=== PATIENT | male | born 1965 | race Native Hawaiian/Other Pacific Islander ===

== ENCOUNTER 2017-01-10 00:27 | Day surgery (SDC) | payer MEDICARE, OTHER, MEDICAID ==
[~2017-01-10] VITALS: Ht 172.7 cm; Wt 76.6 kg
[2017-01-10] VITALS (9 sets, daily range): BP systolic 119–163; BP diastolic 69–82; PULSE 65–74; RESP 8–16; O2SAT 92–100
[~2017-01-10 00:27] MED LIST: AMLO10TA3 PO; HYDR-3940 PO; LANT1000 PO; METO100T3 PO; MIRT15TA PO; MTC5T PO; PANT40TA3 PO; PROM25TA14 PO; SEVE800T7 PO
--- NOTE | 2017-01-10 09:15 | NUR ---
ADMISSION NOTE' MALE PT ADMITTED FOR FISTULOGRAM. DISCUSSED PLAN OF CARE WITH PT. SEE ADMIT AND FLOW SHEET
[2017-01-10] MEDS ORDERED: Heparin 10,000 Unit/1,000 mL NS Premix IV ONE (10:43)
[2017-01-10] MEDS ORDERED: Heparin 1,000 Unit/mL 10 mL Inj ONE (10:43)
[2017-01-10 10:45] LABS: BASOPHILS % (AUTO) 0.5 % (0-3); MONOCYTES % (AUTO) 7.8 % (4-12); Mean Corpuscular Hemoglobin 31.3 pg (27.0-35.0); Mean Corpuscular Volume 93.6 fL (81-100); NEUTROPHILS % (AUTO) 67.1 % (40-74); Platelet Count 172 bil/L (150-400)
[2017-01-10 10:54] LABS: INR 0.96 ratio
[2017-01-10] MEDS ORDERED: CeFAZolin 2 Gm/50 mL D5W Duplex Bag IV ONE (10:55)
[2017-01-10] MEDS ORDERED: 0.9% Sodium Chloride 1,000 ML ONE (10:55)
[2017-01-10] MEDS ORDERED: fentaNYL-PF 50 mCg/mL 2 mL Inj ONE (11:22)
--- NOTE | 2017-01-10 12:20 | NUR ---
POST PROCEDURE NOTE RETURNED FROM [facility]PER[facility]OR REAL ESTATE OFFICE. SEE FLOW SHEET
--- NOTE | 2017-01-10 15:00 | NUR ---
DISCHARGE NOTE Suture removed from fistula site. No bleeding, IV removed. Instructions given. Home with Sister.
--- NOTE | 2017-01-10 15:15 | DRSVH ---
PROCEDURE: ARTERIO VENOUS FISTULOGRAM (PNL) INDICATIONS: Dialysis dysfunction TECHNIQUE: FLUOROSCOPY TIME: 2.5 minutes. 1. Conscious sedation for 60 minutes. 2. Fistulogram performed in stations. 3. Balloon angioplasty of the central cephalic vein. 4. Balloon angioplasty of the mid cephalic vein. 5. Reflux fistulogram at the arteriovenous anastomosis. 6. Sheath removal hemostasis. The indications, alternatives, benefits, risks, and complications of the procedure were explained to the patient. Informed written consent was obtained and placed in the chart. The patient was brought to the angiography suite, and conscious sedation was administered intravenously by senior care s taff, while continuous cardiorespiratory monitoring was performed. Maximum sterile barrier technique was employed per standard protocol, including hand hygiene, cap, ma sk, sterile gown and gloves, and 2% chlorhexidine. One percent lidocaine was used to anesthetize the skin over the area of interest. Using a micropuncture sheath in the right upper extremity venous outf low was accessed in an antegrade fashion. Fistulogram was performed in stations the level of the SVC through the micropuncture sheath. The micropuncture sheath was exchanged for a short 6 Polish sheath. Balloon angioplasty was performed for 2 focal high-grade stenoses within the central portion of the cephalic vein with a 7 mm x 40 mm high-pressure balloon. Completion fistulogram was performed. Balloo n angioplasty was performed for a mild stenosis within the central portion of the cephalic outflow wi th a 7 mm x 40 mm high-pressure balloon. COMPARISON: None. FINDINGS: Initial fistulogram demonstrates a focal high-grade stenosis within the central portion of the cephalic vein. There multiple ectatic, tortuous collaterals throughout the right upper extremity . After balloon angioplasty of the central cephalic vein, there is resolution of the focal stenosis a nd decreased collateralization. After balloon angioplasty of the mild to moderate stenosis within the midportion of the cephalic outflow no stenosis remains. The arteriovenous anastomosis is widely patent. IMPRESSION: 1. Status post balloon angioplasty of a focal high-grade stenosis within the central portion of the c ephalic vein. 2. Status post balloon angioplasty of a mild to moderate grade stenosis within the midportion of the cephalic outflow. Dictated by: Nisha Blood M.D. on 01/10/2017 at 15:09 Approved by: Nisha Blood M.D. on 01/10/2017 at 15:13
== END 2017-01-10 23:59 | disposition home or self-care (01) ==
LOC: SOUO 00:27
PROVIDERS: ATTEND Radiology Vascular & Interventional Radiology
DX: I87.1 Compression of vein (principal); E11.22 Type 2 diabetes mellitus with diabetic chronic kidney disease; N18.6 End stage renal disease; Z99.2 Dependence on renal dialysis; Z91.15 Patient's noncompliance with renal dialysis; Z79.4 Long term (current) use of insulin; E11.21 Type 2 diabetes mellitus with diabetic nephropathy
CPT/HCPCS: 36415; 36902; 80048; 85025; 85610; 99152; 99153; C1725; C1769; C1894; J1200; J1644; J2250; J3010; Q9967

== ENCOUNTER 2017-01-14 07:57 | Emergency (ER) | payer MEDICARE, OTHER, MEDICAID ==
[~2017-01-14 07:57] MED LIST changes: -AMLO10TA3 PO; -LANT1000 PO; -MIRT15TA PO; -PROM25TA14 PO
[2017-01-14 08:04] VITALS: BP 178/92; PULSE 97; RESP 22; O2SAT 100
[2017-01-14] MEDS ORDERED: Ondansetron 2 mg/mL 2 mL Inj IVPUSH ONE (08:05)
[2017-01-14] MEDS ORDERED: Promethazine Inj 12.5 MG in Dextrose 5%-Pha MIX 50 ML IV ONE (08:30)
[2017-01-14] MEDS ORDERED: Sodium Chloride LOK Flush 10 mL Syringe IVFLUSH SCH (08:30)
[2017-01-14] MEDS ORDERED: Acetaminophen IV 1,000 MG in IV Premix 1 EACH IV ONE (08:35)
[2017-01-14 08:53] LABS: BASOPHILS % (AUTO) 0.1 % (0-3); EOSINOPHILS % (AUTO) 0.3 % (0-5); MONOCYTES % (AUTO) 3.7 % (4-12); Mean Corpuscular Hemoglobin 30.9 pg (27.0-35.0); Mean Corpuscular Volume 91.5 fL (81-100); NEUTROPHILS % (AUTO) 87.6 % (40-74); Platelet Count 175 bil/L (150-400)
[2017-01-14] MEDS ORDERED: HYDROmorphone 0.5 mg/0.5 mL iSecure Syringe IVPUSH ONE (08:55)
--- NOTE | 2017-01-14 08:59 | DRSVH ---
PROCEDURE: X-RAY CHEST ONE VIEW, PORTABLE ([id number]) INDICATIONS: possible aspiration pneumonia TECHNIQUE: One view of the chest was acquired. COMPARISON: 04/20/2016 FINDINGS: Surgical changes and devices: Surgical clips right upper quadrant. Lungs and pleura: No pleural effusions or pneumothorax. Lungs are clear. Mediastinum: Mediastinal contours appear normal. Heart size is normal. Bones and chest wall: No suspicious bony lesions. Overlying soft tissues appear unremarkable. IMPRESSION: No acute cardiopulmonary abnormality Dictated by: Emerson Aragon M.D. on 01/14/2017 at 8:56 Approved by: Emerson Aragon M.D. on 01/14/2017 at 8:57
[2017-01-14 09:00] VITALS: BP 121/67; PULSE 80; RESP 12; O2SAT 98
[2017-01-14 09:09] LABS: Magnesium 2.1 mg/dL (1.6-2.6)
[2017-01-14] MEDS ORDERED: 0.9% Sodium Chloride 500 ML IV ONE (09:15)
[2017-01-14 09:45] LABS: TROPONIN T 0.406 ug/L (0.0-0.011)
[2017-01-14 10:00] VITALS: BP 163/79; PULSE 82; RESP 22; O2SAT 99
--- NOTE | 2017-01-14 10:15 | ED.REPORT ---
HPI-NVD Date of Service Jan 14, 2017 ED Provider: Nhi Loyola MD 52yoM with ESRD on hemodialysis secondary to diabetes mellitus type 2 controlled with diet presents with nausea abdominal pain and diarrhea since . The patient states that he has been throwing up even though he has not been taking in any food or water, and describes his vomit as dark without bright blood. The diarrhea has been all colors sometimes dark but without bright blood. The patient often get nauseated and has been on several medication in the past and tried zofran today without improvement. The patient has also have a cough, chills and night sweats. The abdominal pain is described as moderate to severe when actively vomiting and is described as cramping. Nursing Notes Stated Complaint: VOMIT X 2 DAYS Chief Complaint: Male Abdominal Pain Nursing Notes Reviewed: Yes Allergies: Coded Allergies: Oqtztcd-Art-Jqi Reductase Inhibitor (Verified Allergy, Unknown, UNKNOWN ( ATORVASTATIN,LOVASTATIN), 01/14/17) Scheduled Metoprolol Tartrate (Metoprolol Tartrate) 100 Mg Tablet 100 MG PO BID Pantoprazole DR (Pantoprazole DR) 40 Mg Tablet.dr 40 MG PO BID Sevelamer Carbonate (Renvela) 800 Mg Tablet 1,600 MG PO TID 8AM; 12 NOON; 4PM Scheduled PRN Hydralazine (Hydralazine) 50 Mg Tablet 50 MG PO TID PRN PRN UNKNOWN Metoclopramide (Metoclopramide) 5 Mg Tablet 5 MG PO QID PRN PRN For Nausea Ondansetron ODT (Ondansetron ODT) 4 Mg Tab.rapdis 4 MG PO QID PRN PRN For Nausea Ondansetron ODT (Zofran ODT) 4 Mg Tablet 4 MG PO Q4H PRN PRN For Nausea Promethazine HCl (Phenergan) 25 Mg Supp.rect 25 MG RC BID PRN PRN For Nausea General Time Seen by MD: 08:50 Chief Complaint Nausea, Vomiting, Diarrhea, Abd pain, cramping Hx Obtained From: Patient Onset Occurred: 3 days ago Symptom Duration: Waxes and wanes Vomiting: Vomiting clear (dark without blood several episodes daily but not becoming worse) Diarrhea: Diarrhea is watery Location: : Diffuse Quality: Cramping Severity: Current: Severe Severity: Maximum: Severe Associated with: Reports: Anorexia, Headache, Shaking chills Recent Healthcare: Recent doctor visit, Previous diagnosis, Prior workup Similar Sx Previous: Yes Past Medical History Patient History: Family history: Cardiovascular disease FATHER (45) 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 Resuscitation Status: CPR: Attempt Resuscitation Past Medical History Esophageal bleeding ESRD- on dialysis Renal osteodystrophy Chronic anemia Bacteremia/sepsis Reports: Diabetes mellitus, Hypertension Past Surgical History Endoscopy Permacath placement on 09/29/2015 Reports: Cholecystectomy Family History Noncontributory Smoking History Former Smoker Social History Alcohol Use: Denies alcohol use Drug Use: Denies drug use Other Social History: Good social support, Local resident Ambulatory Status Independent Review of Systems Basic Review of Systems Eyes: Vision NL, No discharge Cardiovascular: No chest pain, No palpitations : No dysuria, No frequency Musculoskeletal: No extremity swelling, No extremity pain Hematologic: No bleeding, No bruising Allergy / Immune: No allergy Psychiatric: Normal thought content Constitutional: Reports: Chills, Weakness - generalized Ears / Nose / Throat: Reports: Nasal congestion, Denies: Hearing loss bilateral, Sore throat GI: Reports: Abdominal pain, Diarrhea, Nausea, Vomiting, Denies: Hematemesis, Hematochezia, Melena Skin: Reports Diaphoresis, Denies Bruising, Denies Rash, Denies Unexplained bruises Neurologic: Reports: Headache, Denies: Change LOC, Confusion, Lightheaded, Spinning sensation Complete sys rev & neg: except as marked. Respiratory: Reports: Prod cough, yellow, Shortness of breath, Denies: Hemoptysis Cardiovascular: Reports: Chest pain (when coughing) Physical Exam Initial Vital Signs Vital Signs (First) Date Time Temp Pulse Resp B/P Pulse Ox O2 Delivery O2 Flow Rate FiO2 01/14/17 08:04 36.7 97 22 178/92 100 Room Air Initial VS: Reviewed Head / Eyes: Atraumatic, Normocephalic, PERRL ENT: Mucous membranes moist, Conjunctiva normal, No scleral icterus Neck: Supple, Non-tender, Full range of motion Respiratory: Breath sounds normal, Clear to auscultation, No respiratory distress Cardiovascular: Regular rate & rhythm, Heart sounds normal, Intact distal pulses Back: No CVA tenderness Lymphatic: No lymphadenopathy Extremities: Vascular intact, Neuro intact, No swelling, No tenderness Skin: Warm Neurologic: Alert, Oriented, Nonfocal Psychiatric: Mood/affect normal, Behavior normal, Normal thought content General/Constitutional: Awake, Alert, Cooperative, Not toxic appearing Distress / Hydration: Positive: Distress moderate Appearance / Presentation: Positive: Appears older than age, Frail, Ill appearing/not toxic Abdomen: Soft, No guarding, No rebound, BS normoactive, No distention, No palpable mass Tenderness/Guarding/Rebound: Positive: Tender diffuse Organomegaly / Mass / Hernia: Negative: Hepatomegaly, Pulsatile mass, Splenomegaly Bowel Sounds / Distention: Positive: Bowel sounds tympanitic Interpretation & Diagnostics Lab Results Interpretation Result Diagram: 01/14/17 0835 01/14/17 0835 Test 01/14/17 08:35 White Blood Count 10.8th/mm3 (3.8-10.1) Red Blood Count 4.34mil/mm3 (4.40-5.80) Hemoglobin 13.4g/dL (13.8-17.2) Hematocrit 39.7% (41.0-50.0) Mean Corpuscular Volume 91.5fL (81-100) Mean Corpuscular Hemoglobin 30.9pg (27.0-35.0) Mean Corpuscular Hemoglobin Concent 33.8% (32.0-37.0) Red Cell Distribution Width 12.4% (12.3-15.4) Platelet Count 175bil/L (150-400) Neutrophils (%) (Auto) 87.6% (40-74) Lymphocytes (%) (Auto) 8.0% (14-46) Monocytes (%) (Auto) 3.7% (4-12) Eosinophils (%) (Auto) 0.3% (0-5) Basophils (%) (Auto) 0.1% (0-3) Sodium Level 142mEq/L (134-144) Potassium Level 4.2mEq/L (3.5-5.2) Chloride Level 96mEq/L (97-108) Carbon Dioxide Level 24mmol/L (18-29) Blood Urea Nitrogen 52mg/dL (6-24) Creatinine 11.28mg/dL (0.76-1.27) Estimat Glomerular Filtration Rate 5mL/min (>59) Glucose Level 201mg/dL (60-99) Calcium Level 8.6mg/dL (8.5-10.1) Magnesium Level 2.1mg/dL (1.6-2.6) Total Bilirubin 0.5mg/dL (0.0-1.2) Aspartate Amino Transf (AST/SGOT) 20U/L (0-50) Alanine Aminotransferase (ALT/SGPT) 5U/L (0-44) Alkaline Phosphatase 76U/L (25-150) Troponin T 0.406ug/L (0.0-0.011) Total Protein 7.8g/dL (6.4-8.4) Albumin 4.2g/dL (3.4-5.0) Lipase 190U/L (13-60) Procalcitonin 0.42ng/mL (0.00-0.08) Hold Perea Top Tube Received (Received) ECG Interpretation ECG Interpretation: Normal sinus rhythm Increasing QRS voltage in precordial and left axis deviation Interpreted by: Other (resident) X-Ray Chest Interpretation Chest Xray Interpretation: IMPRESSION: No acute cardiopulmonary abnormality Dictated by: Emerson Aragon M.D. on 01/14/2017 at 8:56 Approved by: Emerson Aragon M.D. on 01/14/2017 at 8:57 Interpretation / Wet Read by: Interpret - Radiologist Re-Eval/Medical Decision Med Decision/Clinical Course 52yoM with ESRD 2/2 DM type 2 presents with NVD. The patient has a history of chronic nausea on several at home medications and several ED visits. High normal WBC with left shift, normal CXR, normal EKG normal ESRD troponin. Likely viral gastroenteritis with concomitant chronic diabetic gastroparesis. Patient treated with IV zofran and phenergan as well as IV fluid and dilaudid for the severe abdominal pain. Feeling much improved after medication, will discharge to [facility] dialysis at 11:30 today and have return if nausea not greatly improved. ED nursing staff has spoke with the dialysis nursing staff and relayed that because the patient is a difficult IV start if the patient will be returning to the ED after dialysis, ED has requested that the current IV line be left in place by the dialysis staff. Source of Hx: Old records Discharge & Departure Impression: Primary Impression: Vomiting Additional Impressions: Gastroenteritis End stage renal disease on dialysis Diabetic ulcer of left foot Troponin level elevated Ruled Out: Hematemesis, Myocardial infarct, Pneumonia Disposition: Home Discharge Condition All VS Reviewed: Yes Condition: Stable Patient Instructions: Gastroenteritis (ED) Additional Instructions: During you visit to [facility] Emergency Department we obtained blood work for infectious markers, hemoglobin levels, and electrolytes. We obtained xray imaging of your chest and upper abdomen. All your lab values were within normal limits and your imaging showed no acute processes or abnormalities. Your vital signs were stable and safe for discharge to receive dialysis You received a dose of Dilaudid pain medication in the ED so please DO NOT drive , DO NOT drink alcohol until after your dialysis treatment. You will be sent with prescriptions for: - Zofran ODT - Phenergan Suppository Please take Tylenol for your abdominal pain and fever and chills However do not hesitate to call emergency services or your primary care physician if you experience any of the following. - High unrelenting fevers. - Uncontrolled vomiting. - Severe abdominal pain - dizziness or loss of consciousness. - Chest pain or severe shortness of breath. You should also follow up with your primary care physician in 1-2 weeks time following your emergency department visit for medication checks and general well -being. Referrals: Akhil Anne DO (PCP) Attending Statement Seen and examined. Nausea controlled at time of discharge to dialysis. IV left in place and possibility of need to return to ED if nausea returns during dialysis. Agree with assessment and plan as above. copies to: Akhil Anne Nicholas K DO Jan 14, 2017 09:41 Nhi Loyola MD Jan 15, 2017 21:47
[2017-01-14] MEDS ORDERED: ONDA4TAB12 PO (10:18)
[2017-01-14] MEDS ORDERED: PROM25SU46 RC (10:18)
[2017-01-14 11:02] VITALS: BP 168/84; RESP 11; O2SAT 96
[2017-01-14] MEDS ORDERED: ONDA4TAB9 PO (19:40)
== END 2017-01-14 11:16 | disposition home or self-care (01) ==
LOC: SED 07:57
DX: K52.9 Noninfective gastroenteritis and colitis, unspecified (principal); E11.29 Type 2 diabetes mellitus with other diabetic kidney complication; E11.621 Type 2 diabetes mellitus with foot ulcer; N18.6 End stage renal disease; R79.89 Other specified abnormal findings of blood chemistry; I12.0 Hypertensive chronic kidney disease with stage 5 chronic kidney disease or end stage renal disease; Z87.891 Personal history of nicotine dependence; Z99.2 Dependence on renal dialysis
CPT/HCPCS: 36415; 71010; 80053; 82308; 83690; 83735; 84484; 85025; 93005; 96374; 96375; 99285; J1170; J2405; J2550; J7040

== ENCOUNTER 2017-01-14 16:22 | Emergency (ER) | payer MEDICARE, OTHER, MEDICAID ==
[~2017-01-14] VITALS: Ht 172.7 cm; Wt 72.0 kg
[~2017-01-14 16:22] MED LIST changes: +ONDA4TAB12 PO; +PROM25SU46 RC
[2017-01-14 16:29] VITALS: BP 154/75; PULSE 89; RESP 15; O2SAT 100
--- NOTE | 2017-01-14 16:44 | ED.REPORT ---
HPI-General Illness Date of Service Jan 14, 2017 ED Provider: Rico Scott MD 52 year old male with a history of esophageal bleeding, ESRD on dialysis, renal osteodystrophy, and chronic anemia presents to the ER via EMS due to generalized weakness and upper abdominal pain onset four days ago. Associated symptoms include nausea, vomiting, headache, and cough. He also states that he has recently had very dark stool, without gross blood. Patient denies fever. Last bowel movement was four days ago. Nursing Notes Stated Complaint: GENERALIZED WEAKNESS Chief Complaint: General Complaint Nursing Notes Reviewed: Yes Allergies: Coded Allergies: Pjwawop-Dis-Cpa Reductase Inhibitor (Verified Allergy, Unknown, UNKNOWN ( ATORVASTATIN,LOVASTATIN), 01/14/17) Scheduled Metoprolol Tartrate (Metoprolol Tartrate) 100 Mg Tablet 100 MG PO BID Pantoprazole DR (Pantoprazole DR) 40 Mg Tablet.dr 40 MG PO BID Sevelamer Carbonate (Renvela) 800 Mg Tablet 1,600 MG PO TID 8AM; 12 NOON; 4PM Scheduled PRN Hydralazine (Hydralazine) 50 Mg Tablet 50 MG PO TID PRN PRN UNKNOWN Metoclopramide (Metoclopramide) 5 Mg Tablet 5 MG PO QID PRN PRN For Nausea Ondansetron ODT (Ondansetron ODT) 4 Mg Tab.rapdis 4 MG PO QID PRN PRN For Nausea Ondansetron ODT (Zofran ODT) 4 Mg Tablet 4 MG PO Q4H PRN PRN For Nausea Promethazine HCl (Phenergan) 25 Mg Supp.rect 25 MG RC BID PRN PRN For Nausea General Time Seen by MD: 16:24 Chief Complaint Abdominal pain, Weakness Hx Obtained From: Patient Arrived By: Ambulance Sudden in Onset?: No Onset Occurred: 4 days ago Symptom Duration: Since onset Location: : Abdomen Quality: Painful Severity: Current: Moderate Severity: Maximum: Moderate Associated with: Reports: Cough, Headache, Nausea, Vomiting, Weakness, Denies: Fever Context Related History: Reports Diabetes mellitus Similar Sx Previous: Yes Past Medical History Patient History: Family history: Cardiovascular disease FATHER (45) 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 Resuscitation Status: CPR: Attempt Resuscitation Past Medical History Esophageal bleeding ESRD- on dialysis Renal osteodystrophy Chronic anemia Bacteremia/sepsis Reports: Diabetes mellitus, Hypertension Reports: GI bleed Past Surgical History Endoscopy Permacath placement on 09/29/2015 Reports: Cholecystectomy Family History Noncontributory Smoking History Former Smoker Social History Alcohol Use: Denies alcohol use Drug Use: Denies drug use Other Social History: Good social support, Local resident Ambulatory Status Independent Review of Systems Full Review of Systems Constitutional: Reports: Weakness - generalized, Denies: Chills, Fever Respiratory: Reports: Non-productive cough Cardiovascular: Denies: Chest pain GI: Reports: Bloody/tarry stool, Constipation, Nausea, Vomiting, Denies: Abdominal pain, Diarrhea, Hematemesis Neurologic: Reports: Headache Complete sys rev & neg: except as marked. Physical Exam Vital Signs Vital Signs Date Time Temp Pulse Resp B/P Pulse Ox O2 Delivery O2 Flow Rate FiO2 01/14/17 20:20 37.1 92 18 156/76 100 Room Air 01/14/17 18:37 92 16 173/81 100 Room Air 01/14/17 16:29 36.9 89 15 154/75 100 Room Air Initial VS: Reviewed Head / Eyes: Atraumatic, Normocephalic Neck: Supple, Non-tender, Full range of motion Extremities: Vascular intact, Neuro intact, No swelling, No tenderness Skin: Warm, Dry, No cyanosis Neurologic: Alert, Oriented, Nonfocal General/Constitutional: Awake, Alert, Well developed, Well nourished Appearance / Presentation: Positive: Uncomfortable Abdomen: No guarding, No rebound, No distention Tenderness/Guarding/Rebound: Positive: Tender epigastric Rectum / Perineum: No gross blood, No hemorrhoids, No lesions Rectal for Blood: Positive: Blood - occult heme + Interpretation & Diagnostics CT Abd / Pelvis Interpretation IMPRESSION: No acute abnormality or visualized etiology of epigastric pain. Normal appendix. Circumferential rectal wall thickening, nonspecific although inflammatory or infectious etiologies are in the differential. Of note, the appearance is similar to 08/25/15. Please correct clinically and if needed with endoscopic evaluation. Circumferential bladder wall thickening, which may also be unchanged although please correlate clinically, with urinalysis and if needed with cystoscopic assessment. Status post cholecystectomy. Dictated by: Robbie Ayala M.D. on 01/14/2017 at 18:38 Approved by: Robbie Ayala M.D. on 01/14/2017 at 18:44 Study type: Abdominal CT IV contrast, Abdom CT oral contrast Interpretation / Wet Read by: Interpret - Radiologist Re-Eval/Medical Decision Med Decision/Clinical Course 52-year-old male history of end-stage renal disease on dialysis presenting with epigastric pain and vomiting. Patient had similar symptoms this morning and was sent over to dialysis. Symptoms persisted after dialysis and he came back. He was given Zofran and IV fluids and morphine and his pain and nausea vomiting resolved. His labs earlier showed no evidence of UTI and no acute cause for his abdominal pain. I did perform a CT abdomen and pelvis with no acute pathology. He does have history of GI bleed therefore I performed a rectal exam which showed no gross blood or melena but was guaiac positive. His hemoglobin is stable. I did discuss with GI who recommended he call tomorrow to get urgent follow-up with them. Patient felt much better and requested be discharged home. I did speak with nephrology Dr. Collins given he received IV contrast who thought okay to wait until Saturday for dialysis. Return precautions given. Source of Hx: Old records Time of Eval: 19:12 Re-Evaluation/Progress Note: Patient's pain is improved. Discussed lab and radiology results and plan to discharge. Patient is amenable to the plan. Return precautions given. All other questions addressed. Consultation #1: Referral / Consult Name: Davon Larios MD Consulted With: On-call physician (MIKAELA) Call Returned at: 19:28 Customs And Immigration Officer: Agrees with eval, Agrees with plan Note: Follow-up with GI to arrange urgent appointment. Consultation #2: Referral / Consult Name: Xavi Collins DO Consulted With: Nephrology Call Returned at: 19:32 Customs And Immigration Officer: Agrees with eval, Agrees with plan Note: OK to follow up on Saturday. Counseled Regarding: Diagnosis, Lab results, Need for follow-up, When/why to return to ED Discharge & Departure Primary Impression: Abdominal pain Additional Impression: GI bleeding Disposition: Home Discharge Condition All VS Reviewed: Yes Condition: Stable Patient Instructions: Acute Abdominal Pain (DC) Additional Instructions: Your workup today was reassuring. I do not believe that there is any dangerous cause for your symptoms at this time. Go home and rest. Call MIKAELA Hall, at the number provided to arrange an urgent follow-up appointment. Keep your appointment for dialysis on Saturday. Return to the ER if you develop worsening symptoms, fever, chills, chest pain, shortness of breath, or any other concerning symptoms. Referrals: Akhil Anne DO (PCP) Toya Smith MD, Donald E MD Scribe Attestation Portions of this note were transcribed by Terry Nguyễn. I, Dr. Scott, personally performed the history, physical exam and medical decision-making; I reviewed and confirmed the accuracy of the information in the transcribed note. Signed by: Tre Mariano, 01/14/2017 - 19:39 copies to: Akhil Anne DO; Toya Smith MD; Davon Larios MD, Ben M MD Jan 14, 2017 16:44 TERRY NGUYỄN Jan 14, 2017 16:49
[2017-01-14] MEDS ORDERED: Ondansetron 2 mg/mL 2 mL Inj IVPUSH PRN (17:00)
[2017-01-14 18:37] VITALS: BP 173/81; PULSE 92; RESP 16; O2SAT 100
--- NOTE | 2017-01-14 18:46 | DRSVH ---
PROCEDURE: CT ABDOMEN AND PELVIS WITH CONTRAST ([id number]) INDICATIONS: abd pain epigastric TECHNIQUE: After the administration of oral and intravenous contrast, 5 mm thick sections acquired from the diap hragms to the symphysis. 5 mm thick coronal and sagittal reformats were performed. For radiation do se reduction, the following was used: automated exposure control, adjustment of mA and/or kV accordi ng to patient size. COMPARISON: [facility], CT, CT ABD PELVIS W CON, 08/25/2015, 19:56. FINDINGS: Image quality: Motion degraded examination. ABDOMEN: Lung bases: Linear scarring/atelectasis in the right lung base. Solid organs: Small cyst adjacent to the posterior segment of the liver image 28 is unchanged since 2 015, otherwise liver and spleen are normal in size and enhancement. Gallbladder surgically absent. Biliary system is non-dilated. Pancreas enhances normally. No adrenal nodules. Kidneys are grossly unremarkable, without hydronephrosis. Presumed subcentimeter left renal cyst although too small to characterize definitively. Peritoneum and bowel: Stomach, small bowel, and colon loops are normal in caliber and wall thickness . No free fluid or air. Normal appendix. Circumferential rectal wall thickening however limited leonardo luation given partially decompressed status. This appears grossly unchanged since prior study. Scatte red incidental colonic diverticula. Nodes and vessels: No retroperitoneal or mesenteric adenopathy. Aorta and inferior vena cava are no rmal in caliber. Prominent atheromatous calcifications. Miscellaneous: No ventral hernias. PELVIS: Genitourinary: Circumferential bladder wall thickening Miscellaneous: No inguinal hernias or adenopathy. Bones: No suspicious bony lesions. No vertebral body compression fractures. IMPRESSION: No acute abnormality or visualized etiology of epigastric pain. Normal appendix. Circumferential rectal wall thickening, nonspecific although inflammatory or infectious etiologies ar e in the differential. Of note, the appearance is similar to 08/25/15. Please correct clinically and i f needed with endoscopic evaluation. Circumferential bladder wall thickening, which may also be unchanged although please correlate clinic ally, with urinalysis and if needed with cystoscopic assessment. Status post cholecystectomy. Dictated by: Robbie Ayaal M.D. on 01/14/2017 at 18:38 Approved by: Robbie Ayala M.D. on 01/14/2017 at 18:44
[2017-01-14] MEDS ORDERED: ONDA4TAB9 PO (19:40)
[2017-01-14 20:20] VITALS: BP 156/76; PULSE 92; RESP 18; O2SAT 100
== END 2017-01-14 20:21 | disposition home or self-care (01) ==
LOC: SED 16:22 → EDUNIT# 16:22 → EDBD 16:22 → SED 20:21
DX: R10.13 Epigastric pain (principal); K92.2 Gastrointestinal hemorrhage, unspecified; R05 Cough; R51 Headache; I12.0 Hypertensive chronic kidney disease with stage 5 chronic kidney disease or end stage renal disease; E11.22 Type 2 diabetes mellitus with diabetic chronic kidney disease; N18.6 End stage renal disease; Z99.2 Dependence on renal dialysis; Z90.49 Acquired absence of other specified parts of digestive tract; Z87.891 Personal history of nicotine dependence; Z88.8 Allergy status to other drugs, medicaments and biological substances
CPT/HCPCS: 74177; 96374; 96375; 96376; 99284; J2270; J2405; Q9967

== ENCOUNTER 2017-05-06 10:33 | Inpatient (IN) | payer MEDICARE, OTHER, MEDICAID ==
[~2017-05-06] VITALS: Ht 177.8 cm; Wt 71.1 kg
[~2017-05-06 10:33] MED LIST changes: +ONDA4TAB9 PO
[2017-05-06 10:50] VITALS: BP 181/94; PULSE 93; RESP 16; O2SAT 94
[2017-05-06] MEDS ORDERED: Ondansetron 2 mg/mL 2 mL Inj ONE (10:51)
[2017-05-06 11:09] LABS: BASOPHILS % (AUTO) 0.1 % (0-3); EOSINOPHILS % (AUTO) 0 % (0-5); MONOCYTES % (AUTO) 2.6 % (4-12); Mean Corpuscular Hemoglobin 31.7 pg (27.0-35.0); Mean Corpuscular Volume 92.4 fL (81-100); NEUTROPHILS % (AUTO) 94.2 % (40-74); Platelet Count 233 bil/L (150-400)
[2017-05-06 11:26] LABS: Magnesium 2.4 mg/dL (1.6-2.6)
--- NOTE | 2017-05-06 11:27 | ED.REPORT ---
HPI-NVD Date of Service May 06, 2017 ED Provider: Beverley Umaña History of Present Illness: vomiting for 2 days, unable to keep anything down. denies coughing. reports mid sternal pain for 2 days. positive heartburn. due for dialysis today. primary care is residency clinic. nephrology is [facility] Nursing Notes Stated Complaint: VOMITING Chief Complaint: Male Abdominal Pain Nursing Notes Reviewed: Yes Allergies: Coded Allergies: Nqsxisv-Onv-Sij Reductase Inhibitor (Verified Allergy, Unknown, UNKNOWN ( ATORVASTATIN,LOVASTATIN), 05/06/17) Scheduled Metoprolol Tartrate (Metoprolol Tartrate) 100 Mg Tablet 100 MG PO BID Pantoprazole DR (Pantoprazole DR) 40 Mg Tablet.dr 40 MG PO BID Sevelamer Carbonate (Renvela) 800 Mg Tablet 1,600 MG PO TID 8AM; 12 NOON; 4PM Scheduled PRN Hydralazine (Hydralazine) 50 Mg Tablet 50 MG PO TID PRN PRN UNKNOWN Metoclopramide (Metoclopramide) 5 Mg Tablet 5 MG PO QID PRN PRN For Nausea Ondansetron ODT (Ondansetron ODT) 4 Mg Tab.rapdis 4 MG PO QID PRN PRN For Nausea Ondansetron ODT (Zofran ODT) 4 Mg Tablet 4 MG PO Q4H PRN PRN For Nausea Promethazine HCl (Phenergan) 25 Mg Supp.rect 25 MG RC BID PRN PRN For Nausea General Time Seen by MD: 11:26 Chief Complaint Vomiting, Diarrhea Hx Obtained From: Patient Onset Occurred: 2 days ago Past Medical History Patient History: Family history: Cardiovascular disease FATHER (45) Past Medical History Notes: 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 Smith Admitted to hospital from 09/26/2015 through 09/30/2015 for sepsis and upper GI bleed. Resuscitation Status: CPR: Attempt Resuscitation Past Medical History Esophageal bleeding ESRD- on dialysis Renal osteodystrophy Chronic anemia Bacteremia/sepsis Reports: Diabetes mellitus, Hypertension Reports: GI bleed Past Surgical History Endoscopy Permacath placement on 09/29/2015 Reports: Cholecystectomy Family History Noncontributory Smoking History Former Smoker Social History Alcohol Use: Denies alcohol use Drug Use: Denies drug use Other Social History: Good social support, Local resident Ambulatory Status Independent Review of Systems Basic Review of Systems Eyes: Vision NL, No discharge Hematologic: No bleeding, No bruising Psychiatric: Normal thought content Physical Exam Initial Vital Signs Vital Signs (First) Date Time Temp Pulse Resp B/P Pulse Ox O2 Delivery O2 Flow Rate FiO2 05/06/17 10:50 36.1 93 16 181/94 94 Room Air Initial VS: Reviewed, Vital signs abnormal Head / Eyes: Atraumatic, Normocephalic, PERRL ENT: Mucous membranes moist, Conjunctiva normal, No scleral icterus Neck: Supple, Non-tender, Full range of motion Respiratory: Breath sounds normal, Clear to auscultation, No respiratory distress Cardiovascular: Regular rate & rhythm, Heart sounds normal, Intact distal pulses Back: No CVA tenderness Lymphatic: No lymphadenopathy Extremities: Vascular intact, Neuro intact, No swelling, No tenderness Skin: Warm, Dry, No cyanosis Neurologic: Alert, Oriented, Nonfocal Psychiatric: Mood/affect normal, Behavior normal, Normal thought content General/Constitutional: Awake, Alert Distress / Hydration: Positive: Distress mild Abdomen: Atraumatic, Soft, Non-tender ENT: Atraumatic, Airway patent, Mucous membranes moist Respiratory / Chest: Atraumatic, Breath sounds NL, Breath sounds = bilat Cardiovascular: Heart rate NL, Regular rhythm, Heart sounds NL Interpretation & Diagnostics Lab Results Interpretation Result Diagram: 05/06/17 1056 05/06/17 1056 Test 05/06/17 10:50 05/06/17 10:56 Procalcitonin 0.81ng/mL (0.00-0.08) White Blood Count 19.6th/mm3 (3.8-10.1) Red Blood Count 4.19mil/mm3 (4.40-5.80) Hemoglobin 13.3g/dL (13.8-17.2) Hematocrit 38.7% (41.0-50.0) Mean Corpuscular Volume 92.4fL (81-100) Mean Corpuscular Hemoglobin 31.7pg (27.0-35.0) Mean Corpuscular Hemoglobin Concent 34.4% (32.0-37.0) Red Cell Distribution Width 13.1% (12.3-15.4) Platelet Count 233bil/L (150-400) Neutrophils (%) (Auto) 94.2% (40-74) Lymphocytes (%) (Auto) 2.9% (14-46) Monocytes (%) (Auto) 2.6% (4-12) Eosinophils (%) (Auto) 0% (0-5) Basophils (%) (Auto) 0.1% (0-3) Sodium Level 144mEq/L (134-144) Potassium Level 4.4mEq/L (3.5-5.2) Chloride Level 92mEq/L (97-108) Carbon Dioxide Level 25mmol/L (18-29) Blood Urea Nitrogen 74mg/dL (6-24) Creatinine 11.55mg/dL (0.76-1.27) Estimat Glomerular Filtration Rate 5mL/min (>59) Glucose Level 373mg/dL (60-99) Lactic Acid Level 3.8mmol/L (0.4-2.0) Calcium Level 9.6mg/dL (8.5-10.1) Magnesium Level 2.4mg/dL (1.6-2.6) Total Bilirubin 0.6mg/dL (0.0-1.2) Aspartate Amino Transf (AST/SGOT) 25U/L (0-50) Alanine Aminotransferase (ALT/SGPT) 24U/L (0-44) Alkaline Phosphatase 89U/L (25-150) Troponin T 0.413ug/L (0.0-0.011) Total Protein 8.9g/dL (6.4-8.4) Albumin 4.2g/dL (3.4-5.0) Lipase 235U/L (13-60) Re-Eval/Medical Decision Med Decision/Clinical Course 52 year old male with ESRD presents to the ER for 2 to 3 days of NVD. Patient with WBC of 19, no fever. Sepsis work up initiated. Discussed with Dr. Collins. His suggestion is not to start antibiotics. Discussed with hospitalist, likely will start antibiotics at least till cultures come back negative. Patient goes to dialysis first then will be admited. Discharge & Departure Impression: Primary Impression: Nausea vomiting and diarrhea Additional Impression: ESRD (end stage renal disease) Disposition: ADMITTED TO HOSPITAL Referrals: Akhil Anne DO (PCP) EDSupervising Provider for APC: Nhi Loyola MD copies to: Akhil Anne Sue ARNP May 06, 2017 11:27
[2017-05-06] MEDS ORDERED: Pantoprazole 4 mg/mL 10 mL Inj IVPUSH ONE (11:35)
[2017-05-06] MEDS ORDERED: Piperacillin-Tazo 3.375 Gm Inj 3.375 GM in Dextrose 5% Minibag Plus 50 ML IV ONE (11:50)
[2017-05-06] MEDS: 0.9% Sodium Chloride 1,000 ML IV SCH ×2 (11:50→20:38)
[2017-05-06] MEDS ORDERED: Promethazine Inj 12.5 MG in Dextrose 5%-Pha MIX 50 ML IV ONE (11:50)
[2017-05-06] MEDS ORDERED: Insulin Human REGular 300 Unit/3 mL Inj SUBQ SCH (11:55)
--- NOTE | 2017-05-06 12:55 | DRSVH ---
PROCEDURE: X-RAY CHEST, TWO VIEWS ([id number]) INDICATIONS: increased wbc. vomiting TECHNIQUE: 2 views of the chest were acquired. COMPARISON: [facility], CR, XR CHEST 1VW (PORTABLE), 01/14/2017, 8:31. [facility], CR, XR CHEST 1VW (PORTABLE), 04/20/2016, 17:39. FINDINGS: Surgical changes and devices: None. Lungs and pleura: No pleural effusions or pneumothorax. Lungs are mildly abnormal with reduced insp iration and slight stranding of the retrocardiac left lower lobe. Mediastinum: Mediastinal contours are normal. Heart size is normal. Bones and chest wall: No suspicious bony abnormalities. Soft tissues appear unremarkable. IMPRESSION: Previous inspiratory volume, mild stranding behind the left heart. This is considered mo re likely atelectasis than pneumonia by appearance. Dictated by: Trent Angela M.D. on 05/06/2017 at 12:52 Approved by: Trent Angela M.D. on 05/06/2017 at 12:53
[2017-05-06 13:07] VITALS: BP 183/94; PULSE 92; RESP 18; O2SAT 97
[2017-05-06] MEDS ORDERED: Ondansetron 2 mg/mL 2 mL Inj IVPUSH PRN ×2 (14:00→15:45)
[2017-05-06] MEDS ORDERED: Alum-Mag Hydrox-Simeth 30 mL Suspension PO PRN (14:00)
--- NOTE | 2017-05-06 14:18 | PCM.HPMED ---
Subjective Date of Service May 06, 2017 Primary Provider: Admitting Physician: Preeti Soares DO Primary Care Physician: Akhil Anne DO Attending Physician: Preeti Soares DO Admit Status: From the Emergency Department Chief Complaint: Nausea, vomiting, and diarrhea. History of Present Illness: This is a 52-year-old male with past medical history significant for diabetes mellitus type II and currently uncontrolled, coronary artery disease, chronic elevation of troponins, ESRD on HD, chronic pain with intermittent opiate use, and peripheral vascular disease who presents today with nausea, vomiting, and diarrhea. The symptoms began 05/03/2017 after dialysis. He does have a sick contact, his sister, who has very similar symptoms. The diarrhea is liquid but he cannot describe the color due to his visual impairment. He also had sharp epigastric pain that is nonradiating with severity of 5/10 and described as constant. The pain is exacerbated by swallowing and hiccups and at times felt like a fullness in his throat. Patient states that nothing seems to relieve the pain. He did have similar symptoms approximately 1 year ago but does not recall how he treated this. Other associated symptoms: Night sweats, shortness of breath, itching of fistula. He denies any fevers, chills, chest pain cough, worsening lower extremity swelling. In the emergency department initial vitals were temperature 36.1 Celsius, pulse 93, respiratory rate 16, blood pressure 181/94, initial laboratory values WBC 19.6, hemoglobin 13.3, hematocrit 30.7, platelets 233. BUN 74, creatinine 11.55 , glucose 373, lactic acid 3.8, troponin 0.413. Chest x-ray showed likely atelectasis versus pneumonia. EKG showed normal sinus rhythm with rate of 90. Blood cultures are pending. In the emergency department patient received a 1 L bolus of normal saline, pantoprazole, lorazepam, and Humulin 10 units. Review of Systems: A comprehensive review of systems was conducted with the patient and found to be negative except as above in the History of Present Illness. Allergies Coded Allergies: Fxldcdw-Buk-Wit Reductase Inhibitor (Verified Allergy, Unknown, UNKNOWN ( ATORVASTATIN,LOVASTATIN), 05/06/17) atorvastatin (Verified Allergy, Unknown, 05/06/17) lovastatin (Verified Allergy, Unknown, 05/06/17) Home Medications hydralazine 50 mg tablet take 1 tablet by oral route 3 times every day with food metoprolol tartrate 25 mg tablet take 1 Tablet by oral route 2 times every day oxycodone 5 mg tablet take 1 tablet by ORAL route every 6 hours as needed for severe pain pantoprazole 40 mg tablet,delayed release take 1 tablet by oral route 2 times every day Renvela 800 mg tablet take 2 tablet by oral route 3 times every day at 8AM & 12noon & 4PM PMH Coronary artery disease ESRD on HD Diabetes mellitus type II Peripheral vascular disease Hypertension GERD Chronically elevated troponins Chronic pain on opiates. Chronic normocytic anemia Cardiac catheterization on 01/10/2017: Status post balloon angioplasty of focal high-grade stenosis in the central portion of the cephalic vein. Status post balloon angioplasty of a mild to moderate grade stenosis in the midportion of the cephalic outflow. Echocardiogram on 08/26/2015: EF of 60-65%. Left ventricular wall thickness mildly increased. Trace mitral, aortic, and tricuspid regurgitation. Right ventricular systolic pressure 36 mmHg. Surgical History Cholecystectomy. Permacath placement. Family History Family history of coronary artery disease, renal disease, diabetes mellitus type II Social History Hx Alcohol Use: No (quit in Dec 2014) Hx Substance Use: Yes (marijuana smokes it small amts weekly 11/25 lasts him 2- 3 weeks ) Hx Tobacco Use: No Smoking Status: Former Smoker Additional Information Patient smokes marijuana. Exam Vital Signs Vital Sign - Last Date Time Temp Pulse Resp B/P Pulse Ox O2 Delivery O2 Flow Rate FiO2 05/06/17 13:07 92 18 183/94 97 Room Air 05/06/17 10:50 36.1 Exam General: No acute distress, chronically ill appearing. Answering questions appropriately. HEENT: Normocephalic, atraumatic. External ears without defect. Pupils equal, round, and reactive to light and accommodation. Anicteric sclerae, moist conjunctivae, and no lid lag. Oropharynx free of erythema and cobble stoning with moist mucosa. Neck: Supple with full range of motion. No jugular venous distension. No bruits. No lymphadenopathy or thyromegaly. Cardiovascular: Regular rate and rhythm with no murmurs, rubs, or gallops appreciated Pulmonary: Clear to auscultation bilaterally with no crackles, wheezes, or rhonchi. Normal respiratory effort with no use of accessory muscles. Abdomen: Bowel tones present. Soft, epigastric tenderness present without rebound or guarding, nondistended. No hepatosplenomegaly or masses appreciated. Extremities: No clubbing, cyanosis, edema, or lymphadenopathy appreciated. Fistula right: no erythema, discharge. Some excoriations at fistula site. Skin: Normal temperature, turgor, and texture; no rash, ulcers, or subcutaneous nodules appreciated. Neurological: Cranial nerves grossly intact. Normal muscle strength, tone, and bulk. Reflexes, coordination, and sensory function within normal limits. No known gait impairment. Psychiatric: Normal mood and affect. Alert and oriented to person, place, and time. Lab and Diagnostics Result Diagram: 05/06/17 1056 05/06/17 1056 X-Rays, CTs and MRIs Chest x-ray on 05/06/2017: IMPRESSION: Previous inspiratory volume, mild stranding behind the left heart. This is considered more likely atelectasis than pneumonia by appearance. Dictated by: Trent Angela M.D. on 05/06/2017 at 12:52 Assessment & Plan This is a 52-year-old male with past medical history significant for coronary artery disease, ESRD on HD, peripheral vascular disease, chronic pain on opiates , diabetes type II who presents for nausea and vomiting. Likely gastroenteritis. Differential includes cyclic vomiting syndrome, diabetic gastroparesis, pancreatitis, SBO. Nausea, vomiting, diarrhea, present on admission, ongoing: -Patient has sick contact (sister) who had similar symptoms. Likely gastroenteritis. He does have a history of untreated diabetes and diabetic gastroparesis. -PCR stool panel pending. -Patient has a history of nausea and prescribed metoclopramide from residency clinic on 12/11/2016. -Zofran for breakthrough nausea Systemic inflammatory response, present on admission, ongoing: -Pulse 93, WBC 19. Unknown etiology but likely intra-abdominal. -Procalcitonin .81. -Will track infectious markers. Consider adding zosyn depending on morning labs. Diabetes mellitus type II, present on admission, ongoing: -Most recent A1c on 08/22/2016 5.9. -Patient states he has not taken his diabetic medications in over a year. -Repeat A1c pending -Given Humulin 10 units in emergency department. -Humalog medium dose correctional. -Will consider starting lantus in am. Lactic acidosis with high anion gap, present on admission, ongoing: -Lactic acid of 3.8. Anion gap of 27. -Patient in HD on admit. -Recheck in am. Chronically elevated troponins, present on admission, ongoing: -Patient has chronically elevated troponins. -Patient reports no chest pain, numbness or tingling extremities. -Admit troponin 0.413. Stable compared to previous troponins. Last troponin on 01/14/2017.406. -Will trend troponin. Chronically elevated lipase, present on admission, ongoing: -On admit lipase 235. This has been chronically elevated in the past. Last lipase on 01/14/2017 was 190. -Continue to monitor. Hypertension, present on admission, ongoing: -Planned HD. Continue BP meds in am. ESRD on HD present admission, ongoing: -Dr. Collins of nephrology is following patient. Chronic normocytic anemia -On admits hemoglobin 13.3, hematocrit 30.7. This is stable and somewhat improved from previous - Continue to monitor. Leukocytosis, present on admission, ongoing: -Possibly due to stress reaction vs. intra-abdominal infection. -WBC of 19.6 with left shift. -Procalcitonin .81. Patient is admitted under inpatient status with expected length of stay greater than 2 midnights due to severity of presenting symptoms, risk of adverse event, and complexity of treatment plan. Pain Evaluation: Adequate Pain Control Time spent 60 minutes Attending Statement The patient was seen and examined together with Dr. Anne on 05/06/17 and I have added additional information to the note above. Celestine Bravo DO May 06, 2017 14:18 Preeti Soares DO May 07, 2017 17:43
[2017-05-06 15:11] VITALS: BP 166/91; PULSE 92
[2017-05-06] MEDS ORDERED: HYDR-3940 PO (15:21)
[2017-05-06] MEDS ORDERED: OXYC5TAB72 PO (15:21)
[2017-05-06] MEDS ORDERED: ONDA-54 PO (15:21)
[2017-05-06] MEDS ORDERED: CALC667C9 PO (15:21)
[2017-05-06] MEDS ORDERED: METO25TA6 PO (15:21)
[2017-05-06] MEDS ORDERED: Glucose 40% Oral Gel 15 Gm Tube PO PRN (15:50)
[2017-05-06] MEDS ORDERED: Insulin Human REGular 300 Unit/3 mL Inj SUBQ ONE (16:09)
[2017-05-06] MEDS: Heparin 5,000 Unit/mL Inj SUBQ SCH ×2 (16:30→23:38)
[2017-05-06] MEDS: Insulin LISPRO 300 Unit/3 mL Inj SUBQ SCH ×2 (17:30→20:37)
--- NOTE | 2017-05-06 18:51 | NUR ---
Dialysis note: 4 hr tx. Net UF 0.00. Pt came in to ED c/o nausea, vomiting x 2 days. No UF taken. Right UA fistula; 2- 15g needles, lidocaine used. QB 435. Pt rested and slept throughout tx. Refused anything to drink. BG 1810 93 and at 1845 94. Report given to dialysis nurseShanelle.
--- NOTE | 2017-05-06 19:30 | NUR ---
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
[2017-05-06 20:01] VITALS: BP 154/80; PULSE 90; RESP 20; O2SAT 99
[2017-05-06] MEDS ORDERED: MeTOProlol 1 mg/mL 5 mL Inj IVPUSH ONE (20:15)
[2017-05-06] MEDS ORDERED: hydrALAZINE 20 mg/mL Inj IV PRN (20:25)
[2017-05-06] MEDS ORDERED: MetoCLOpramide 5 mg/mL 2 mL Inj IVPUSH PRN (20:35)
[2017-05-06] MEDS: Promethazine Inj 25 MG in Dextrose 5%-Pha MIX 50 ML IV PRN (20:56)
[2017-05-06 21:43] VITALS: BP 142/83; PULSE 87
--- NOTE | 2017-05-06 22:23 | CONS ---
[address] [address] CONSULTATION REPORT PATIENT: OXANA PARSONS : 1965 MR#: [id number] ADMIT: 05/06/2017 JOB ID: [id number] DATE OF SERVICE: RENAL CONSULTATION: HISTORY OF PRESENT ILLNESS: The patient is a very pleasant, but unfortunate, 52-year-old gentleman who was admitted to [facility] for intractable nausea, vomiting and abdominal pain. He has a history of end-stage renal disease and is dialysis dependent. Today, is his routine dialysis day and renal consultation is being sought for further evaluation of his end-stage renal disease. He has a longstanding history of insulin-requiring diabetes mellitus. 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 He also intermittently smokes marijuana almost on a daily basis and also takes OxyContin for various pain. There is a history of recurrent cyclical vomiting which may be due to a combination of gastroparesis and marijuana use. He has had several symptoms of this in the past and has had several admissions. He states that for about the last day and a half to two days he has had intermittent abdominal pain with nausea, vomiting, occasional diarrhea, and has had very little oral intake. Unfortunately, he has not had any sleep for the last 24-36 hours, which has aggravated a lot of his other symptoms. He denies any severe headache, chest pain, cough, wheezing, orthopnea, lower extremity edema, paroxysmal nocturnal dyspnea, recent antibiotics, skin rash, fever, chills, or difficulty in urination. In the emergency department, his blood pressure was elevated and his BUN and creatinine were also elevated at 74 and 11.3. His lactic acid level was obtained and found to be elevated at 3.8. The emergency department did not do any imaging of his abdominal region, however, chest x-rays revealed some mild atelectasis. He has since been given several medications and is resting comfortably in dialysis, where he was once again re-examined. PAST MEDICAL HISTORY: Significant for insulin-requiring diabetes mellitus with multiple end-organ damage as detailed above, end-stage renal disease which is dialysis dependent, coronary artery disease, peripheral vascular disease, hypertension with hypertensive heart disease and hypertensive nephrosclerosis, gastroparesis with GERD, chronic pain which is opioid dependent. There is also a history of a diabetic foot ulcer for which he has been seen by the [facility] and this is well healed over. PAST SURGICAL HISTORY: Is significant for cholecystectomy, placement of a tunneled dialysis catheter, balloon angioplasty with stent placement and AV fistula. ALLERGIES: He is allergic to STATINS. SOCIAL HISTORY: He denies any current use of alcohol or tobacco, but does consume marijuana fairly frequently. He denies any IV drugs or methamphetamines. REVIEW OF SYSTEMS: As detailed above, otherwise is noncontributory. MEDICATIONS: Include insulin, hydralazine, metoclopramide, metoprolol, oxycodone, pantoprazole and Renvela. PHYSICAL EXAMINATION: Revealed a thin, 52-year-old gentleman who was alert and oriented x3, in no distress at time of my evaluation. His blood pressure in dialysis was 164/84 with a heart rate of 88. HEENT examination is remarkable for pale sclerae. Neck is supple without adenopathy, thyromegaly or jugular venous distention. Lungs are clear to auscultation. Heart was regular and rhythmical with a soft systolic murmur. Abdomen is soft. Abdomen showed quiet bowel sounds throughout the abdomen. There was no free fluid wave noted, nor was there any tenderness, rebound, guarding, masses or hepatosplenomegaly. Extremities do not show any evidence of any clubbing, cyanosis, or edema. Examination of the feet did not show any evidence of any skin lesions. Skin turgor was good and there was no evidence of any rashes. LABORATORY EXAMINATION: In the emergency department, his white count was 19.6, hemoglobin 13.3, hematocrit 38.7. Red cell indices and platelet count were normal. He had 92% neutrophils, but no bands were noted. Sodium is 144, potassium 4.4, chloride 92, bicarbonate 25, BUN and creatinine were 74 and 11.6. His glucose was 373. His albumin is 4.2. Lipase is slightly elevated at 235, which is consistent with chronic kidney disease. As noted, there was not a urinalysis obtained although it was requested at the time of referral to us. IMPRESSION: 1. End-stage renal disease, dialysis dependent. 2. Diabetic insulin, requiring diabetes mellitus with multiple end-organ damage including peripheral neuropathy, diabetic retinopathy, diabetic renal disease, gastroparesis. 3. Cyclic vomiting. 4. Hypertension with hypertensive heart disease and hypertensive nephrosclerosis. 5. Mixed acid base disorder with increased anion gap metabolic acidosis and metabolic alkalosis from vomiting. RECOMMENDATION: 1. The patient is to be dialyzed today for four hours on a 3K bath 450 blood flow with Revaclear Max dialyzer. He is also to be dialyzed on a citrate dialysis protocol and no fluid will be removed. 2. I would strongly recommend workup of his abdominal issues sooner rather than later. Without any obvious signs or source of an infection, I would be unsure as to whether antibiotics would be indicated at this time pending cultures. Of course should his clinical condition change, this would be recommended. Once again, I would like to thank you for allowing me to participate in the care of this most pleasant and unfortunate patient. I will be following him closely with you.
--- NOTE | 2017-05-06 22:37 | NUR ---
Admit/ CT/ Nausea Pt admitted to [facility] from [facility]. Pt placed on Tele showing SR 90s. Pt denies any pain. Right arm fistula asymptomatic. Admission completed via pt interview. Reviewed with pt plan for night. CT abdomen ordered. Pt states he does not think he can tolerate oral contrast. Spoke to Dr. Black who ordered and EKG to obtain QTC prior to administering anti nausea meds. QTC noted to be 478. MD aware. Order received to medicated with Phenergan first. Phenergan given prior to oral contrast. pt still not able to tolerate contrast- dry heaving with each sip. Pt noted to also be very tired and dismissive. Dr. Black updated. At bed to assess pt. still wanting CT eventhough pt only able to tolerate a few sips of contrast. Pt back from CT. currently sleeping comfortably.
[2017-05-06] MEDS: HYDROcodone-APAP 5-325 mg Tablet PO PRN (23:23)
[2017-05-07] VITALS (8 sets, daily range): BP systolic 122–177; BP diastolic 70–105; PULSE 78–87; RESP 16–18; O2SAT 98–100
[2017-05-07] MEDS: 0.9% Sodium Chloride 1,000 ML IV SCH (06:23)
[2017-05-07] MEDS: Insulin LISPRO 300 Unit/3 mL Inj SUBQ SCH ×4 (07:46→20:13)
[2017-05-07] MEDS: Heparin 5,000 Unit/mL Inj SUBQ SCH ×3 (07:56→16:21)
[2017-05-07] MEDS ORDERED: Pantoprazole 40 mg ER24 Tablet PO SCH (08:30)
--- NOTE | 2017-05-07 10:04 | DRSVH ---
PROCEDURE: CT ABDOMEN AND PELVIS WITHOUT CONTRAST ([id number]) INDICATIONS: Abdominal pain TECHNIQUE: After the administration of oral contrast, 5 mm thick sections acquired from the diaphragms to the sy mphysis. 5 mm coronal and sagittal reformats were performed. For radiation dose reduction, the foll owing was used: automated exposure control, adjustment of mA and/or kV according to patient size. COMPARISON: [facility], CT, CT ABD PELVIS W CON, 08/25/2015, 19:56. FINDINGS: Image quality: Excellent. ABDOMEN: Lung bases: Presumed subpleural atelectasis or scarring seen in the right lung base.. Heart size is normal. Solid organs: Liver and spleen are normal in size. Gallbladder surgically absent. Pancreas is norm al in size. No adrenal nodules. Both kidneys are normal in size, without hydronephrosis or nephroli thiasis. Numerous bilateral renal vascular calcifications. Hypodensity measuring 8 mm seen in the le ft renal cortex on image 27 is too small to characterize and technically indeterminate. A nonspecific nodule measuring 1.5 cm adjacent to the right lobe of the liver on image 26 is grossly unchanged sin ce 08/25/15 therefore probably benign. Peritoneum and bowel: Possible distal esophageal wall thickening, which is nonspecific although upper endoscopy or upper GI series can be performed for further assessment as clinically desired. No bowel obstruction, free air or free fluid. There are scattered colonic diverticula without evidence of acu te complication. Appendix appears normal. There is marked anal and distal rectal wall thickening in k eeping with proctitis. Technically this is age-indeterminate (and of note, this appearance was also s een on a prior study dated 08/25/15) recommend clinical correlation. Nodes and vessels: No retroperitoneal or mesenteric adenopathy by size criteria. Aorta and inferior vena cava are normal in size. Miscellaneous: No ventral hernias. PELVIS: Genitourinary: Bladder wall thickness is normal. Miscellaneous: No inguinal hernias or adenopathy. Bones: No suspicious bony lesions. No vertebral body compression fractures. IMPRESSION: Prominent distal rectal and anal wall thickening in keeping with proctitis. Please correlate clinical ly. Distal esophageal possible wall thickening although technically indeterminate it could be falsely acc entuated due to decompressed state. If clinically necessary, further assessment with upper endoscopy or upper GI series can be performed. Incidental colonic diverticulosis. Normal appendix. Dictated by: Robbie Ayala M.D. on 05/07/2017 at 9:55 Approved by: Robbie Ayala M.D. on 05/07/2017 at 10:02
[2017-05-07] MEDS: Promethazine Inj 25 MG in Dextrose 5%-Pha MIX 50 ML IV PRN (10:09)
[2017-05-07 10:13] LABS: BASOPHILS % (AUTO) 0.1 % (0-3); EOSINOPHILS % (AUTO) 1.1 % (0-5); MONOCYTES % (AUTO) 6.3 % (4-12); Mean Corpuscular Hemoglobin 31.3 pg (27.0-35.0); Mean Corpuscular Volume 95.6 fL (81-100); NEUTROPHILS % (AUTO) 83.5 % (40-74); Platelet Count 175 bil/L (150-400)
[2017-05-07 11:13] LABS: TROPONIN T 0.41 ug/L (0.0-0.011)
--- NOTE | 2017-05-07 13:52 | PCM.PNNEPH ---
Jace Vines DO 05/07/17 1352: Subjective Date of Service May 07, 2017 Subjective Patient is a 52yom w/ MHx significant for diabetes type II with multiple sequelae that includes neuropathy, gastroparesis, and ESRD presented with several days of nausea vomiting plus singultus, admitted for abdominal pain and systemic inflammatory response syndrome. Nephrology has been consulted for evaluation and treatment of sensation disease. No overnight events. Singultus stopped. Patient complains of generalized abdominal pain, still with some nausea and vomiting. Denies any diarrhea. Blood pressure currently 126/73 Patient received 1 L of fluid in the ED, otherwise no ultrafiltrate removed during hemodialysis yesterday. Labs electrolytes this a.m. unremarkable, Sodium 139, potassium 4.1, chloride 99, BUN 27, creatinine is 6.44 CBC, WBC 12.1 with 83.5% neutrophil. Hemoglobin and hematocrit 10.6/32.4, that dropped from 13.3/38.[address] abdomen and pelvis done yesterday, reports possible proctitis, incidental colonic diverticulosis, and possible some esophageal thickening. No other significant pathology to explain upper quadrant abdominal pain. Exam Vital Signs Vital Sign - Last Date Time Temp Pulse Resp B/P Pulse Ox O2 Delivery O2 Flow Rate FiO2 05/07/17 11:52 36.7 79 18 145/82 98 Room Air Intake and Output 05/06/17 05/06/17 05/07/17 Cumulative From/Thru 15:00 23:00 07:00 05/06/17 12:21 - 05/07/17 06:00 Intake Total 1000 ml 932 ml 1932 ml Output Total 0 ml 0 ml 0 ml Balance 1000 ml 0 ml 932 ml 1932 ml Intake Oral 100 ml 100 ml IV Total 1000 ml 832 ml 1832 ml Output Urine Total 0 ml 0 ml Ultrafiltrate 0 ml 0 ml Exam General: Fatigued, appropriate interactive HEENT: Normocephalic, atraumatic. PERRLA, EOMI Neck: No JVD, Cardiovascular: Regular rate and rhythm with no murmurs, rubs, or gallops appreciated Pulmonary: Clear to auscultation bilaterally with no crackles, wheezes, or rhonchi. Normal respiratory effort with no use of accessory muscles. Abdomen: Bowel tones present. Soft, nondistended, some tenderness over the epigastric. No rebound tenderness Extremities: No clubbing, cyanosis, edema, or lymphadenopathy appreciated. Skin: Normal temperature, turgor, and texture; no rash, ulcers, or subcutaneous nodules appreciated. Neurological: CN II-12 intact, moving equally in all 4 extremities Psychiatric: Normal mood and affect. Alert and oriented to person, place, and time. Lab and Diagnostics Result Diagram: 05/07/17 1007 05/07/17 1007 X-Rays, CTs and MRIs Chest x-ray on 05/06/2017: IMPRESSION: Previous inspiratory volume, mild stranding behind the left heart. This is considered more likely atelectasis than pneumonia by appearance. Dictated by: Trent Angela M.D. on 05/06/2017 at 12:52 Plan Impression Patient is a 52yom w/ MHx significant for diabetes type II with multiple sequelae that includes neuropathy, gastroparesis, and ESRD presented with several days of nausea vomiting plus singultus, admitted for abdominal pain and systemic inflammatory response syndrome. Nephrology has been consulted for evaluation and treatment of sensation disease. Patient ESRD likely resulted from a prior attention and 10 years of uncontrolled diabetes type II with significant retinopathy, neuropathy, nephropathy, peripheral vascular disease, and degree of gastroparesis. Problem list # End stage renal disease, dialysis dependent # Diabetes type II with multiple end organ damage, not on insulin # Probable cyclic vomiting syndrome # Hypertension with hypertensive heart disease and hypertensive nephrosclerosis # Normocytic anemia due to multifactorial Plan: # Dialysis schedule Saturday # Continue metoprolol 25 mg twice a day - DC IV hydralazine - Consider LORRAINE inhibitor, enalapril should SBP >160mmhg #Repeat H&H and iron panel Xavi Collins DO 05/07/17 1435: Exam Lab and Diagnostics Result Diagram: 05/07/17 1007 05/07/17 1007 Plan Plan: Pt. seen and examined with Dr. Vines and plan discussed, I agree with the note and plan, HD in am Jace Vines DO May 07, 2017 13:52 Xavi Collins DO May 07, 2017 14:35
[2017-05-07 14:35] LABS: Unsaturated Iron Binding 92.1 ug/dL
--- NOTE | 2017-05-07 14:36 | PCM.PNMED ---
Subjective Date of Service May 07, 2017 Subjective This is a 52 year old male with ESRD on HD, diabetes mellitus type 2, and CAD who presented with midepigastric abdominal pain, nausea, vomiting, and diarrhea. He states that today he has improved. He still has midepigastric abdominal pain but states this is improving. He denies any further episodes of diarrhea. He also states that he has chronic thoracic and lumbar pain. Review of systems is otherwise negative. Exam Vital Signs Vital Sign - Last Date Time Temp Pulse Resp B/P Pulse Ox O2 Delivery O2 Flow Rate FiO2 05/07/17 11:52 36.7 79 18 145/82 98 Room Air Intake and Output 05/06/17 05/06/17 05/07/17 Cumulative From/Thru 15:00 23:00 07:00 05/06/17 12:21 - 05/07/17 06:00 Intake Total 1000 ml 932 ml 1932 ml Output Total 0 ml 0 ml 0 ml Balance 1000 ml 0 ml 932 ml 1932 ml Intake Oral 100 ml 100 ml IV Total 1000 ml 832 ml 1832 ml Output Urine Total 0 ml 0 ml Ultrafiltrate 0 ml 0 ml Exam General: No acute distress, chronically ill appearing. Answering questions appropriately. HEENT: Normocephalic, atraumatic. Oropharynx free of erythema and cobble stoning with moist mucosa. Neck: Supple with full range of motion. No jugular venous distension. Cardiovascular: Regular rate and rhythm with no murmurs, rubs, or gallops appreciated Pulmonary: Clear to auscultation bilaterally with no crackles, wheezes, or rhonchi. Normal respiratory effort with no use of accessory muscles. Abdomen: Bowel tones present. Soft, epigastric tenderness present without rebound or guarding, nondistended. No hepatosplenomegaly or masses appreciated. Extremities: No clubbing, cyanosis, edema, or lymphadenopathy appreciated. Fistula right UE: no erythema, discharge. Some excoriations at fistula site. Musculoskeletal: Tenderness to palpation of left trapezius muscle. Tenderness of palpation of left SI joint. Tenderness to palpation of right iliacus. Psychiatric: Normal mood and affect. Alert and oriented to person, place, and time. IVs and Medications Medications Reviewed: Medications were reviewed in detail Lab and Diagnostics Result Diagram: 05/07/17 1007 05/07/17 1007 X-Rays, CTs and MRIs Chest x-ray on 05/06/2017: IMPRESSION: Previous inspiratory volume, mild stranding behind the left heart. This is considered more likely atelectasis than pneumonia by appearance. Dictated by: Trent Angela M.D. on 05/06/2017 at 12:52 Assessment & Plan This is a 52-year-old male with past medical history significant for coronary artery disease, ESRD on HD, peripheral vascular disease, chronic pain on opiates , diabetes mellitus type II who presents for nausea and vomiting with differential including gastroenteritis, gerd, diabetic gastroparesis. Nausea, vomiting, diarrhea, present on admission, improving: -Patient has a history of nausea and prescribed metoclopramide from residency clinic on 12/11/2016. -PCR stool panel pending. -Protonix continued. -Zofran for nausea. Systemic inflammatory response, present on admission, resolved. -Procalcitonin stable. -Will track infectious markers. -As patient condition is improving will hold on antibiotics. Diabetes mellitus type II, present on admission, ongoing: -Most recent A1c on 08/22/2016 5.9. -Patient states he has not taken his diabetic medications in over a year. -A1c 6.3. -Humalog medium dose correctional. Lactic acidosis with high anion gap, present on admission, improving: -.AG improved. -HD on 05/07/2017. Chronically elevated troponins, present on admission, ongoing: -Patient has chronically elevated troponins that are stable. Chronically elevated lipase, present on admission, ongoing: -On admit lipase 235. This has been chronically elevated in the past. Last lipase on 01/14/2017 was 190. Hypertension, present on admission, ongoing: -Continue metoprolol. -Nephrology has stopped hydralazine. ESRD on HD present admission, ongoing: -Dr. Collins of nephrology is following patient. Chronic normocytic anemia -On admits hemoglobin 13.3, hematocrit 30.7. This is stable and somewhat improved from previous - Continue to monitor. Leukocytosis, present on admission, ongoing: -Possibly due to stress reaction vs. intra-abdominal infection. -WBC trending down. -Procalcitonin .stable. Dispo: patient will likely discharge in 1-2 days after nausea and epigastric pain is under control. Pain Evaluation: Adequate Pain Control Resuscitation Status: CPR: Attempt Resuscitation Attending Statement The patient was seen and examined together with Dr. Bravo on 05/07/2017 and I have added additional information to the note above. Celestine Bravo DO May 07, 2017 14:36 Preeti Soares DO May 09, 2017 15:55 Celestine Bravo DO May 07, 2017 14:36 Patient is admitted under inpatient status with expected length of stay greater than 2 midnights due to severity of presenting symptoms, risk of adverse event, and complexity of treatment plan. Celestine Bravo DO May 07, 2017 14:36
[2017-05-07] MEDS: Pantoprazole 40 mg ER24 Tablet PO SCH ×2 (14:52→16:18)
[2017-05-07] MEDS: HYDROcodone-APAP 5-325 mg Tablet PO PRN (14:53)
--- NOTE | 2017-05-07 14:54 | PCM.PROC ---
Procedure Note Date of Service: May 07, 2017 Procedure: Procedure: Osteopathic Manipulative Treatment Subjective: Patient complains of chronic abdominal pain, lumbar back pain, thoracic back that has been present for years. The pain occurs daily. Relieving factors: opiate pain medications and marijuana. Exacerbating factors : movement. Risks and benefits of OMT were explained to the patient and verbal consent obtained. Osteopathic Structural Exam: Head: Muscle energy on O/A FSlRr Cervicals: Muscle energy on C6ESRr Thoracics: Muscle energy T1-T7 NRlSr. Lumbars: Myofasical release of left paraspinal musculature. [id number] Abdomen: Myofascial release to celiac ganglion restriction. Ribs: Facilitated positional release and myofascial release to left inhaled 1st rib and left inhaled 5th rib. Pelvis: Muscle energy to right anterior innominate. Muscle energy to left posterior innominate. Sacrum: BLT of left S2 restrictions. Upper extremities: Myofascial release to left trapezius and latissimus dorsi Lower extremities: Counterstrain/visceral to psoas tenderpoint on right. Patient responded well to treatment. Patient states pain was improved after treatment. Osteopathic treatment modalities used: Myofascial release, Muscle Energy, Cranial, BLT, and soft tissue technique Patient advised to followup with osteopathic residents at the residency clinic for additional OMT. Patient also advised to partake in Pilates 2-3 times a week for strengthening to help decrease pain. Provider and Emergency Nurse: Dr. Fany Bravo Student Dr. Derian Ward Student Dr. Terry Goldsmith Attending Statement The patient was seen and examined together with Dr. Bravo on 05/07/17 and I have added additional information to the note above. Preeti Soares DO May 07, 2017 14:54 Celestine Bravo DO May 07, 2017 17:03
[2017-05-07] MEDS ORDERED: Pantoprazole 4 mg/mL 10 mL Inj IVPUSH ONE (16:00)
--- NOTE | 2017-05-07 17:30 | NUR ---
nausea/ refusal pt continues to be nauseated all day. No emesis. Treated as tolerated with antiemetics see MAR. Pt has refused SQ heparin, labs, and some some PO meds when nauseated. Dr Anne aware. Pt educated on participating in his care and reason for lab draws. Allowed labs to be drawn later.
[2017-05-08] VITALS (7 sets, daily range): BP systolic 133–160; BP diastolic 59–92; PULSE 72–93; RESP 16–20; O2SAT 97–100
[2017-05-08] MEDS: Heparin 5,000 Unit/mL Inj SUBQ SCH ×3 (01:49→16:15)
[2017-05-08 07:01] LABS: BASOPHILS % (AUTO) 0.1 % (0-3); EOSINOPHILS % (AUTO) 2.3 % (0-5); Mean Corpuscular Hemoglobin 31.5 pg (27.0-35.0); Mean Corpuscular Volume 95.5 fL (81-100); NEUTROPHILS % (AUTO) 74.4 % (40-74); Platelet Count 190 bil/L (150-400)
[2017-05-08] MEDS: Insulin LISPRO 300 Unit/3 mL Inj SUBQ SCH ×4 (08:00→20:02)
--- NOTE | 2017-05-08 08:42 | NUR ---
dialysis pt leaves to dialysis at 0740. Clau SUAZO given report.
--- NOTE | 2017-05-08 08:50 | NUR ---
pt arrived [place] [facility] [place] at ~0750 via bed alert, oriented, cooperative; call light in reach report received from BY Rn ([facility]) tele cathodic protection technician informed of temp room location [facility] prior to arrival = 71; [facility] at 0850 = 95 commercial electrician at bedside; will cont to monitor
[2017-05-08] MEDS: Promethazine Inj 25 MG in Dextrose 5%-Pha MIX 50 ML IV PRN (08:54)
[2017-05-08] MEDS: HYDROcodone-APAP 5-325 mg Tablet PO PRN ×2 (09:00→21:18)
--- NOTE | 2017-05-08 09:28 | PCM.PNNEPH ---
Subjective Date of Service May 08, 2017 Subjective She continues to have abdominal pain, nausea, and retrosternal chest pain associated with swallowing. Patient has not been seen by gastroenterology which I feel is appropriate at this point. His potassium level today is 4.3. Exam Vital Signs Vital Sign - Last Date Time Temp Pulse Resp B/P Pulse Ox O2 Delivery O2 Flow Rate FiO2 05/08/17 07:30 82 05/08/17 03:40 36.9 17 143/83 97 Room Air Intake and Output 05/07/17 05/07/17 05/08/17 Cumulative From/Thru 15:00 23:00 07:00 05/06/17 12:21 - 05/08/17 06:36 Intake Total 370 ml 630 ml 2932 ml Output Total 0 ml 0 ml 0 ml Balance 370 ml 630 ml 2932 ml Intake Oral 120 ml 500 ml 720 ml IV Total 250 ml 130 ml 2212 ml Output Urine Total 0 ml 0 ml 0 ml Ultrafiltrate 0 ml # Bowel Movements 1 1 Exam Neck is supple without adenopathy thyromegaly or jugular venous distention. Lungs are clear to auscultation. Heart is regular and rhythmical with a soft systolic murmur. Abdomen is soft with some mild epigastric tenderness, no evidence of any hepatosplenomegaly. Termination attorney lawyer evidence of any clubbing, cyanosis, or edema. Skin turgor is good. Lab and Diagnostics Result Diagram: 05/08/17 0636 05/08/17 0636 X-Rays, CTs and MRIs Chest x-ray on 05/06/2017: IMPRESSION: Previous inspiratory volume, mild stranding behind the left heart. This is considered more likely atelectasis than pneumonia by appearance. Dictated by: Trent Angela M.D. on 05/06/2017 at 12:52 Plan Impression Impression #1 end-stage renal disease dialysis dependent number to diabetic nephropathy #3 intractable nausea and vomiting from diabetic gastroparesis with possible esophagitis #4 hypertension with hypertensive heart disease and hypertensive nephrosclerosis. Recommendations #1 patient's be dialyzed today for 4 hours on a max dialyzer, 3 potassium bath, citrate anticoagulation, 450 blood flow, and 1 L fluid to be removed. I would also strongly recommend gastroenterology consult as his problem is not resolving. In light of his retrosternal chest pain would be concerned about Xavi Collins DO May 08, 2017 09:28
--- NOTE | 2017-05-08 09:35 | PCM.PNMED ---
Subjective Date of Service May 08, 2017 Subjective This is a 52 year old male with ESRD on HD, diabetes mellitus type 2, and CAD who presented with midepigastric abdominal pain, nausea, vomiting, and diarrhea. The nausea continues to improve. He states that he is having difficulty swallowing liquids and feels as if they are getting stuck. This is associated with pain in the midepigastric region of his abdomen. He denies any further episodes of diarrhea. He also continues to have chronic thoracic and lumbar back pain. Review of systems is otherwise negative. Exam Vital Signs Vital Sign - Last Date Time Temp Pulse Resp B/P Pulse Ox O2 Delivery O2 Flow Rate FiO2 05/08/17 07:30 82 05/08/17 03:40 36.9 17 143/83 97 Room Air Intake and Output 05/07/17 05/07/17 05/08/17 Cumulative From/Thru 15:00 23:00 07:00 05/06/17 12:21 - 05/08/17 06:36 Intake Total 370 ml 630 ml 2932 ml Output Total 0 ml 0 ml 0 ml Balance 370 ml 630 ml 2932 ml Intake Oral 120 ml 500 ml 720 ml IV Total 250 ml 130 ml 2212 ml Output Urine Total 0 ml 0 ml 0 ml Ultrafiltrate 0 ml # Bowel Movements 1 1 Exam General: No acute distress, chronically ill appearing. Answering questions appropriately. HEENT: Normocephalic, atraumatic. Oropharynx free of erythema and cobble stoning with moist mucosa. Neck: Supple with full range of motion. No jugular venous distension. Cardiovascular: Regular rate and rhythm with no murmurs, rubs, or gallops appreciated Pulmonary: Clear to auscultation bilaterally with no crackles, wheezes, or rhonchi. Normal respiratory effort with no use of accessory muscles. Abdomen: Bowel tones present. Soft, epigastric tenderness present without rebound or guarding, nondistended. No hepatosplenomegaly or masses appreciated. Extremities: No clubbing, cyanosis, edema, or lymphadenopathy appreciated. Fistula right: no erythema, discharge. Some excoriations at fistula site. Musculoskeletal: Tenderness to palpation of left paraspinal musculature in the thoracic region. Psychiatric: Normal mood and affect. Alert and oriented to person, place, and time. IVs and Medications Medications Reviewed: Medications were reviewed in detail Lab and Diagnostics Result Diagram: 05/08/17 0636 05/08/1736 X-Rays, CTs and MRIs Chest x-ray on 05/06/2017: IMPRESSION: Previous inspiratory volume, mild stranding behind the left heart. This is considered more likely atelectasis than pneumonia by appearance. Dictated by: Trent Angela M.D. on 05/06/2017 at 12:52 CT of the abdomen and pelvis without contrast on 05/06/2017: IMPRESSION: Prominent distal rectal and anal wall thickening in keeping with proctitis. Please correlate clinically. Distal esophageal possible wall thickening although technically indeterminate it could be falsely accentuated due to decompressed state. If clinically necessary, further assessment with upper endoscopy or upper GI series can be performed. Incidental colonic diverticulosis. Normal appendix. Dictated by: Robbie Ayala M.D. on 05/07/2017 at 9:55 Assessment & Plan This is a 52-year-old male with past medical history significant for coronary artery disease, ESRD on HD, peripheral vascular disease, chronic pain on opiates , diabetes mellitus type II who presents for nausea and vomiting with differential including gastroenteritis, gerd, diabetic gastroparesis. Nausea, vomiting, diarrhea, present on admission, improving: -Patient has a history of nausea and prescribed metoclopramide from residency clinic on 12/11/2016. -PCR stool panel pending. -Protonix continued. -Zofran for nausea. -Speech evaluation ordered. -Barium swallow ordered for dysphagia. Systemic inflammatory response, present on admission, resolved. -Procalcitonin stable. -Will track infectious markers. -As patient condition is improving will hold on antibiotics. Diabetes mellitus type II, present on admission, ongoing: -A1c 6.3. -Patient states he has not taken his diabetic medications in over a year. -Humalog medium dose correctional. Lactic acidosis with high anion gap, present on admission, improving: -.AG improved. -HD planned for 05/08. Chronically elevated troponins, present on admission, ongoing: -Patient has chronically elevated troponins that are stable. Chronically elevated lipase, present on admission, ongoing: -On admit lipase 235. This has been chronically elevated in the past. Last lipase on 01/14/2017 was 190. Hypertension, present on admission, ongoing: -Continue metoprolol. -Nephrology has stopped hydralazine. ESRD on HD present admission, ongoing: -Dr. Collins of nephrology is following patient. Chronic normocytic anemia -On admits hemoglobin 13.3, hematocrit 30.7. This is stable and somewhat improved from previous - Continue to monitor. Leukocytosis, present on admission, ongoing: -Possibly due to stress reaction vs. intra-abdominal infection. -WBC trending down. -Procalcitonin .stable. DVT prophylaxis: heparin. Dispo: patient will likely discharge in 1-2 days after nausea and epigastric pain is under control. Resuscitation Status: CPR: Attempt Resuscitation Celestine Bravo DO May 08, 2017 09:35
--- NOTE | 2017-05-08 12:24 | NUR ---
Dialysis note 4 hr HD tx 1000ml net UF removed 2 15 g needles to R U fistula with Lido QB 350 See DTR for complete vitals trends. Pt c/o mid sternal pain with swallow (MD aware) [place] 1 tab given Phenegran IV for nausea Sureseals/clamps X10 mins post tx Report given and pt returned to floor stable.
[2017-05-08] MEDS: Pantoprazole 40 mg ER24 Tablet PO SCH ×2 (13:48→16:15)
--- NOTE | 2017-05-08 14:01 | DRSVH ---
PROCEDURE: X-RAY BARIUM SWALLOW ESOPHAGUS ([id number]) INDICATIONS: Dysphagia COMPARISON: [facility], CT, CT ANGIO CHEST PE, 10/15/2015, 22:54. [facility], CT, CT ABD PELVIS WO CON, 05/06/2017, 22:07. FINDINGS: Limited by patient mobility and inability to weight-bear. Single contrast examination was performed Function: There is markedly decreased and delayed esophageal peristalsis. No elicited gastroesophag eal reflux. There is normal transit of a calibrated barium tablet through the esophagus into the sto mach. Morphology: Single contrast views show no esophageal strictures, extrinsic mass effects, or divertic marcelina. Limited images of the stomach demonstrate normal appearance. IMPRESSION: Severe esophageal dysmotility and delayed esophageal clearance. No definite stricture see n however limited examination due to decreased patient mobility and absence of air-contrast images. I f there is persistent clinical concern, upper endoscopy could be performed as clinically warranted. Dictated by: Robbie Ayala M.D. on 05/08/2017 at 13:49 Approved by: Robbie Ayala M.D. on 05/08/2017 at 14:00
[2017-05-08] MEDS ORDERED: PROMETHAZINE IV PRN (20:05)
[2017-05-08] MEDS ORDERED: SODIUM CHLORIDE 0.9% IV PRN (20:05)
[2017-05-09] VITALS (10 sets, daily range): BP systolic 143–173; BP diastolic 78–99; PULSE 70–88; RESP 14–18; O2SAT 96–100
[2017-05-09] MEDS: Heparin 5,000 Unit/mL Inj SUBQ SCH ×4 (00:16→23:20)
[2017-05-09] MEDS: HYDROcodone-APAP 5-325 mg Tablet PO PRN ×5 (01:22→23:21)
[2017-05-09] MEDS ORDERED: PROMETHAZINE IV PRN (06:10)
[2017-05-09] MEDS ORDERED: SODIUM CHLORIDE 0.9% IV PRN (06:10)
[2017-05-09] MEDS: Insulin LISPRO 300 Unit/3 mL Inj SUBQ SCH ×4 (08:00→20:15)
[2017-05-09] MEDS: Pantoprazole 40 mg ER24 Tablet PO SCH ×2 (08:21→16:59)
--- NOTE | 2017-05-09 09:14 | NUR ---
Hypoglycemia Patient had low blood sugar of 49. Cranberry juice given and blood glucose increased to 75 on recheck. notified.
--- NOTE | 2017-05-09 09:45 | NUR ---
Evaluation completed. Please go to "Notes" then click on "Assessments and Notes" (bottom left corner of screen). Then select appropriate discipline tab on top of screen.
--- NOTE | 2017-05-09 10:27 | NUR ---
Nausea/pain Patient states his nausea is much better today. Patient experiencing 10/10 esophageal pain when swallowing. Speech therapy scheduled for eval today.
--- NOTE | 2017-05-09 12:22 | NUR ---
[place] Signed @ [id number]
--- NOTE | 2017-05-09 14:47 | NUR ---
NUTRITION ASSESSMENT: ASSESS: Pt is a 52yo M admitted for n/v/d and ESRD. Pt is on chronic dialysis. Nephrology is following. Pt has been complaining of difficulty swallowing liquids. ST evaluated pt and cleared him for FL diet with bites of pureed texture. He also had MBS today. Pt has had poor PO intake x3 days due to nausea. Pt reported that today his nausea is better today. Wt has been stable throughout admit. PMHX: ESRD, T2DM, CAD LABS: Reviewed. 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 Zofran, insulin GI: BMx1 05/08 SKIN: Rajiv 18 CURRENT WTS: 70.9kg, BMI 22.4kg/m2, admit wt 70.3kg, IBW 75.4kg DIET: FL, per ST EST. NEEDS: dialysis Kcals: 2125-2485kcal/day (30-35kcal/kg) Pro: 85-140g/day (1.2-2.0g/kg) NUTRITION DIAGNOSIS: 1.) Inadequate oral intake related to altered GI function as evidence by persistent n/v and poor PO intake 2.) Increased kcal/pro needs related to ESRD as evidence by pt on chronic dialysis NUTRITION INTERVENTION: 1.) Diet per ST 2.) Continue to send Nepro at L, encourage PO intake MONITOR / EVAL: PO, ST, GI, labs, WT, POC, nutrition status. Will continue to monitor per moderate nutrition risk guidelines
--- NOTE | 2017-05-09 15:51 | PCM.PNMED ---
Subjective Date of Service May 09, 2017 Subjective This is a 52 year old male with ESRD on HD, diabetes mellitus type 2, and CAD who presented with midepigastric abdominal pain, nausea, vomiting, and diarrhea. The nausea continues to improve. He states that he is still having difficulty swallowing liquids and feels as if they are getting stuck. This is still associated with pain in the midepigastric region of his abdomen. Overnight he continued to have diarrhea. He also continues to have chronic thoracic and lumbar back pain. Review of systems is otherwise negative. Exam Vital Signs Vital Sign - Last Date Time Temp Pulse Resp B/P Pulse Ox O2 Delivery O2 Flow Rate FiO2 05/09/17 15:00 152/78 05/09/17 12:44 36.6 79 18 100 Room Air Intake and Output 05/08/17 05/08/17 05/09/17 Cumulative From/Thru 15:00 23:00 07:00 05/06/17 12:21 - 05/09/17 06:21 Intake Total 100 ml 100 ml 3132 ml Output Total 1000 ml 0 ml 1000 ml Balance -1000 ml 100 ml 100 ml 2132 ml Intake Oral 100 ml 100 ml 920 ml IV Total 2212 ml Output Urine Total 0 ml 0 ml Ultrafiltrate 1000 ml 1000 ml # Bowel Movements 1 2 Exam General: No acute distress, chronically ill appearing. Answering questions appropriately. HEENT: Normocephalic, atraumatic. Oropharynx free of erythema and cobble stoning with moist mucosa. Neck: Supple with full range of motion. No jugular venous distension. Cardiovascular: Regular rate and rhythm with no murmurs, rubs, or gallops appreciated Pulmonary: Clear to auscultation bilaterally with no crackles, wheezes, or rhonchi. Normal respiratory effort with no use of accessory muscles. Abdomen: Bowel tones present. Soft, epigastric tenderness present without rebound or guarding, nondistended. No hepatosplenomegaly or masses appreciated. Extremities: No clubbing, cyanosis, edema, or lymphadenopathy appreciated. Fistula right: no erythema, discharge. Some excoriations at fistula site. Musculoskeletal: Tenderness to palpation of left paraspinal musculature in the thoracic region. Psychiatric: Normal mood and affect. Alert and oriented to person, place, and time. IVs and Medications Medications Reviewed: Medications were reviewed in detail Lab and Diagnostics Result Diagram: 05/09/17 0307 05/09/17 0307 X-Rays, CTs and MRIs Chest x-ray on 05/06/2017: IMPRESSION: Previous inspiratory volume, mild stranding behind the left heart. This is considered more likely atelectasis than pneumonia by appearance. Dictated by: Trent Angela M.D. on 05/06/2017 at 12:52 CT of the abdomen and pelvis without contrast on 05/06/2017: IMPRESSION: Prominent distal rectal and anal wall thickening in keeping with proctitis. Please correlate clinically. Distal esophageal possible wall thickening although technically indeterminate it could be falsely accentuated due to decompressed state. If clinically necessary, further assessment with upper endoscopy or upper GI series can be performed. Incidental colonic diverticulosis. Normal appendix. Dictated by: Robbie Ayala M.D. on 05/07/2017 at 9:55 Additional Diagnostics Barium swallow study on 05/09/2017: IMPRESSION: Severe esophageal dysmotility and delayed esophageal clearance. No definite stricture seen however limited examination due to decreased patient mobility and absence of air-contrast images. If there is persistent clinical concern, upper endoscopy could be performed as clinically warranted. Dictated by: Robbie Ayala M.D. on 05/08/2017 at 13:49 Assessment & Plan This is a 52-year-old male with past medical history significant for coronary artery disease, ESRD on HD, peripheral vascular disease, chronic pain on opiates , diabetes mellitus type II who presents for nausea and vomiting with differential including gastroenteritis, gerd, diabetic gastroparesis. C diff positive, present on admission, ongoing: -Patient has active diarrhea. -Review of previous records shows no c diff infection. -Metronidazole ordered. Nausea, vomiting, diarrhea, present on admission, improving: -Patient has a history of nausea and prescribed metoclopramide from residency clinic on 12/11/2016. -Protonix continued. -Zofran for nausea. -Barium swallow showed severe esophageal dysmotility and delayed esophageal clearance. -GI will consult. Systemic inflammatory response, present on admission, resolved. -Procalcitonin stable. -Will track infectious markers. -As patient condition is improving will hold on antibiotics. Diabetes mellitus type II, present on admission, ongoing: -A1c 6.3. -Patient states he has not taken his diabetic medications in over a year. -Humalog medium dose correctional. Lactic acidosis with high anion gap, present on admission, improving: -.AG improved. -HD planned for 05/08. Chronically elevated troponins, present on admission, ongoing: -Patient has chronically elevated troponins that are stable. Chronically elevated lipase, present on admission, ongoing: -On admit lipase 235. This has been chronically elevated in the past. Last lipase on 01/14/2017 was 190. Hypertension, present on admission, ongoing: -Continue metoprolol. -Nephrology has stopped hydralazine. ESRD on HD present admission, ongoing: -Dr. Collins of nephrology is following patient. Chronic normocytic anemia -On admits hemoglobin 13.3, hematocrit 30.7. This is stable and somewhat improved from previous - Continue to monitor. Leukocytosis, present on admission, ongoing: -Possibly due to stress reaction vs. intra-abdominal infection. -WBC trending down. -Procalcitonin .stable. DVT prophylaxis: heparin. Dispo: patient will likely discharge in 1-2 days after nausea and epigastric pain is under control. Resuscitation Status: CPR: Attempt Resuscitation Celestine Bravo DO May 09, 2017 15:51
--- NOTE | 2017-05-09 16:22 | NUR ---
Evaluation completed. Please go to "Notes" then click on "Assessments and Notes" (bottom left corner of screen). Then select appropriate discipline tab on top of screen.
[2017-05-10] VITALS (7 sets, daily range): BP systolic 145–195; BP diastolic 84–104; PULSE 67–84; RESP 16–18; O2SAT 97–100
[2017-05-10 04:17] LABS: BASOPHILS % (AUTO) 0.2 % (0-3); EOSINOPHILS % (AUTO) 5.8 % (0-5); MONOCYTES % (AUTO) 8.8 % (4-12); Mean Corpuscular Hemoglobin 31.6 pg (27.0-35.0); Mean Corpuscular Volume 92.9 fL (81-100); NEUTROPHILS % (AUTO) 60.2 % (40-74); Platelet Count 180 bil/L (150-400)
--- NOTE | 2017-05-10 05:40 | NUR ---
Pain Pt reported pain at 3/10 at HS and worse with swallowing; requested pain medication with 2330 medications and reported relief after administration. Pt NPO after midnight. HS BG 104 and recheck at 2330 106; BG assessed again at 0400 with a result of 86; pt denies feeling symptomatic - per provider, no additional glucose given unless <80 or symptomatic. VSS with one transient episode of HTN, resolved with HS medications. Tele SR 80s.
[2017-05-10] MEDS: Pantoprazole 40 mg ER24 Tablet PO SCH (07:30)
[2017-05-10] MEDS ORDERED: ALPRAZolam 0.5 mg Tablet PO ONE (07:35)
[2017-05-10] MEDS: Insulin LISPRO 300 Unit/3 mL Inj SUBQ SCH ×2 (08:00→12:00)
[2017-05-10] MEDS: Heparin 5,000 Unit/mL Inj SUBQ SCH (08:30)
--- NOTE | 2017-05-10 09:00 | NUR ---
Anxiety/Dialysis Patient a/o x 4, denies pain or nausea, but c/o increased anxiety r/t npo and pending procedure. paged and new meds received and given. Patient transported [place] [facility] [place] for dialysis. senior qc technician notified of room change and report given to Jodi SUAZO.
--- NOTE | 2017-05-10 09:14 | NUR ---
Pt arrived to [facility]: Pt arrived to [facility] for dialysis treatment. Pt appears stable at time of arrival. Regalamos aware of room change. Report given by Kendra Medel RN. Addendum: 05/10/17 at 1355 by MEGAN NUNEZ RN Pt completed dialysis without incident. Report called to Kendra Medel RN. Pt appears stable at time of transfer. plant health care technician aware of transfer back to [facility].
[2017-05-10] MEDS ORDERED: Lactobacillus Rhamnosus 10 Bil Unit Capsule PO SCH (12:00)
--- NOTE | 2017-05-10 13:35 | NUR ---
Dialysis note: 4 hrs tx 2000 ml net UF Right upper arm fistula, accessed with no problems Pls see DTR for VS details Qb 450-500 No heparin given, Citrasate used instead O2 @ 2L via NC on during tx Tolerated tx, slept at intervals Fistula needle sites clotted w/in 10 min Stable condition at end of tx Report given to Gale SUAZO
--- NOTE | 2017-05-10 14:44 | NUR ---
Post Dialysis Patient transported back to room via bed, denies pain, nausea or sob. Jonas dialysis well. Npo for Endoscopy this afternoon.
--- NOTE | 2017-05-10 15:19 | PCM.PNNEPH ---
Subjective Date of Service May 10, 2017 Subjective Patient is about the same. He is still having considerable difficulties with solid food or anything more than small sips and bites. I have reviewed. Swallow and have discussed case with gastroenterology. Exam Vital Signs Vital Sign - Last Date Time Temp Pulse Resp B/P Pulse Ox O2 Delivery O2 Flow Rate FiO2 05/10/17 09:10 82 05/10/17 08:34 36.5 16 163/89 99 Room Air Intake and Output 05/09/17 05/09/17 05/10/17 Cumulative From/Thru 15:00 23:00 07:00 05/06/17 12:21 - 05/10/17 03:42 Intake Total 406 ml 3538 ml Output Total 0 ml 1000 ml Balance 406 ml 2538 ml Intake Oral 320 ml 1240 ml IV Total 86 ml 2298 ml Output Urine Total 0 ml 0 ml Ultrafiltrate 1000 ml # Bowel Movements 3 5 Exam Lungs are clear to auscultation. Heart is regular and rhythmical with a soft systolic murmur. Abdomen soft without any tenderness rebound guarding masses or hepatosplenomegaly. Extremities show evidence of any clubbing, cyanosis Lab and Diagnostics Result Diagram: 05/10/17 0345 05/10/17 0345 X-Rays, CTs and MRIs Chest x-ray on 05/06/2017: IMPRESSION: Previous inspiratory volume, mild stranding behind the left heart. This is considered more likely atelectasis than pneumonia by appearance. Dictated by: Trent Angela M.D. on 05/06/2017 at 12:52 CT of the abdomen and pelvis without contrast on 05/06/2017: IMPRESSION: Prominent distal rectal and anal wall thickening in keeping with proctitis. Please correlate clinically. Distal esophageal possible wall thickening although technically indeterminate it could be falsely accentuated due to decompressed state. If clinically necessary, further assessment with upper endoscopy or upper GI series can be performed. Incidental colonic diverticulosis. Normal appendix. Dictated by: Robbie Ayala M.D. on 05/07/2017 at 9:55 Additional Diagnostics Barium swallow study on 05/09/2017: IMPRESSION: Severe esophageal dysmotility and delayed esophageal clearance. No definite stricture seen however limited examination due to decreased patient mobility and absence of air-contrast images. If there is persistent clinical concern, upper endoscopy could be performed as clinically warranted. Dictated by: Robbie Ayala M.D. on 05/08/2017 at 13:49 Plan Impression Impression #1 end-stage renal disease dialysis dependent #2 diabetic nephropathy with severe diabetic gastroparesis #3 hypertension with hypertensive heart disease hypertensive nephrosclerosis. Recommendation #1 patient is dialyzing 4 hours on a max dialyzer, 3 potassium bath, heparin, citrate protocol, 400.0, ferritin 1-2 l as tolerated. Xavi Collins DO May 10, 2017 15:19
--- NOTE | 2017-05-10 15:49 | PCM.PNMED ---
Subjective Date of Service May 10, 2017 Subjective Overnight patient is doing better with no additional vomiting but continued nausea; no pain; patient still has trouble swallowing. Going for dialysis and EGD today. It was also requested that the patient have a tap water enema for poss flex sig but patient refused the enema. Exam Vital Signs Vital Sign - Last Date Time Temp Pulse Resp B/P Pulse Ox O2 Delivery O2 Flow Rate FiO2 05/10/17 09:10 82 05/10/17 08:34 36.5 16 163/89 99 Room Air Intake and Output 05/09/17 05/09/17 05/10/17 Cumulative From/Thru 15:00 23:00 07:00 05/06/17 12:21 - 05/10/17 03:42 Intake Total 406 ml 3538 ml Output Total 0 ml 1000 ml Balance 406 ml 2538 ml Intake Oral 320 ml 1240 ml IV Total 86 ml 2298 ml Output Urine Total 0 ml 0 ml Ultrafiltrate 1000 ml # Bowel Movements 3 5 Exam General: No acute distress, chronically ill appearing. Answering questions appropriately. Cardiovascular: Regular rate and rhythm 2/6 syst murmur Pulmonary: CTA bilaterally Abdomen: Bowel tones present. Soft, epigastric tenderness present without rebound or guarding, nondistended. No hepatosplenomegaly or masses appreciated. Extremities: No clubbing, cyanosis, edema, or lymphadenopathy appreciated. Fistula right: no erythema, discharge. Some excoriations at fistula site. Psychiatric: Normal mood and affect. IVs and Medications Medications Reviewed: Medications were reviewed in detail Lab and Diagnostics Result Diagram: 05/10/17 0345 05/10/17 0345 X-Rays, CTs and MRIs Chest x-ray on 05/06/2017: IMPRESSION: Previous inspiratory volume, mild stranding behind the left heart. This is considered more likely atelectasis than pneumonia by appearance. Dictated by: Trent Angela M.D. on 05/06/2017 at 12:52 CT of the abdomen and pelvis without contrast on 05/06/2017: IMPRESSION: Prominent distal rectal and anal wall thickening in keeping with proctitis. Please correlate clinically. Distal esophageal possible wall thickening although technically indeterminate it could be falsely accentuated due to decompressed state. If clinically necessary, further assessment with upper endoscopy or upper GI series can be performed. Incidental colonic diverticulosis. Normal appendix. Dictated by: Robbie Ayala M.D. on 05/07/2017 at 9:55 Additional Diagnostics Barium swallow study on 05/09/2017: IMPRESSION: Severe esophageal dysmotility and delayed esophageal clearance. No definite stricture seen however limited examination due to decreased patient mobility and absence of air-contrast images. If there is persistent clinical concern, upper endoscopy could be performed as clinically warranted. Dictated by: Robbie Ayala M.D. on 05/08/2017 at 13:49 Assessment & Plan This is a 52-year-old male with past medical history significant for coronary artery disease, ESRD on HD, peripheral vascular disease, chronic pain on opiates , diabetes mellitus type II who presents for nausea and vomiting with differential including gastroenteritis, gerd, diabetic gastroparesis. C diff positive, present on admission, ongoing: -Patient has active diarrhea. -Review of previous records shows no c diff infection. -Flagyl changed to Vanco PO Nausea, vomiting, present on admission, improving: -Patient has a history of nausea and prescribed metoclopramide from residency clinic on 12/11/2016. -Protonix continued. -Zofran for nausea. -Barium swallow showed severe esophageal dysmotility and delayed esophageal clearance. -GI to perform EGD today -Enema requested for flex sig but patient refused -stop Reglan due to ESRD and reglan not able to be dialyzed Systemic inflammatory response, present on admission, resolved. -Procalcitonin stable. -Will track infectious markers. -As patient condition is improving will hold on antibiotics. Diabetes mellitus type II, present on admission, stable -A1c 6.3. -Patient states he has not taken his diabetic medications in over a year. -Humalog medium dose correctional. Lactic acidosis with high anion gap, present on admission, resolved -.AG improved. -HD planned for 05/08. Chronically elevated troponins, present on admission, stable -Patient has chronically elevated troponins that are stable. Chronically elevated lipase, present on admission, resolving -On admit lipase 235. This has been chronically elevated in the past. Last lipase on 01/14/2017 was 190. -Lipase today was in the 80's Hypertension, present on admission, ongoing: -Continue metoprolol. -Nephrology has stopped hydralazine. ESRD on HD present admission, ongoing: -Dr. Collins of nephrology is following patient. -Dialyzed 05/10/17 Chronic normocytic anemia -On admits hemoglobin 13.3, hematocrit 30.7. This is stable and somewhat improved from previous - Continue to monitor. Leukocytosis, present on admission, resolved -Possibly due to stress reaction vs. intra-abdominal infection. -WBC trending down. -Procalcitonin .stable. Dispo: D/C tomorrow pending EGD results; he is greatly improved Pain Evaluation: Adequate Pain Control Resuscitation Status: CPR: Attempt Resuscitation Attending Statement The patient was seen and examined together with Dr. Anne on 05/10/2017 and I agree with the history, exam and plan as outlined in the note above. . Akhil Anne DO May 10, 2017 15:49 Rosendo Stapleton MD May 10, 2017 16:26
[2017-05-10] MEDS ORDERED: VANC125C3 PO (16:48)
--- NOTE | 2017-05-10 16:51 | NUR ---
Social Work: Continued Discharge Planning D/A: Pt discussed in am rounds. Pt is not yet medically stable for discharge and is awaiting EGD. MD states pt may require HH at discharge but to follow up on Saturday about this. Pt is currently off the floor at dialysis- [employer] will follow up with patient re: discharge plan once returned. Pt has 24 hours of caregiving a week. He is w/c bound at baseline and has declined rehab. Per PT, pt is not a good rehab candidate anyways. P: Anticipate pt to discharge home with resumed caregiving; [employer] to follow up about HH referral with MD at am rounds and continue to assess for discharge needs. KARINE Reyna
--- NOTE | 2017-05-10 16:52 | PCM.DIMED ---
Akhil Anne DO 05/10/17 1652: Discharge Instructions Date of Service May 10, 2017 Dates of Hospitalization May 06, 2017 at 13:32 Discharge Diagnosis Discharge Diagnosis Clostridium Difficile Dysphagia, undetermined etiology Nausea/vomiting ESRD Medication Instructions Additional med instructions Vancomycin Diet Discharge Diet: Diabetic, Renal Diet Activity Discharge Activity: No restrictions Call your provider Call your provider for: Bleeding Patient Instructions Patient Instructions You are leaving against medical advice. We are sending you with vancomycin to take to treat your colon infection. You should also call gastro-enterology and follow-up for your difficulty swallowing. Follow-up Provider: [facility] Follow-up with PCP in: 1 week Provider: Jan Pena MD Follow-up in: 2 weeks Rosendo Stapleton MD 05/10/17 1752: Discharge Instructions Attending's Statement The patient was seen and examined together with Dr. Anne on 05/10/2017 and I agree with the history, exam and plan as outlined in the note above. Akhil Anne DO May 10, 2017 16:52 Rosendo Stapleton MD May 10, 2017 17:52
--- NOTE | 2017-05-10 17:39 | NUR ---
AMA Patient a/o x 4, npo since 0900 for EGD at 1600. bill distributor called Endo per patient request at 1630 to find out the delay. bill distributor informed patient that Endo was behind schedule and it would be another hour before they could take him down. Patient became upset because of the extended delay for the procedure and requested to just discharge today and cancel the procedure. Dr Anne was notified and spoke with the patient. Patient declined to wait any longer for the procedure and signed AMA form. Patient given prescription and info on diagnosis. Tele and IV SL removed intact. Patient taken to main entrance with all belongings and discharged.
--- NOTE | 2017-05-10 17:55 | PCM.DC.MED ---
Discharge Summary Date of Service May 10, 2017 Dates of Hospitalization Date of Hospital Admission May 06, 2017 at 13:32 Date of Discharge: May 10, 2017 Providers: Admitting Physician: Rosendo Stapleton MD Primary Care Physician: Akhil Champion DO Attending Physician: Rosendo Stapleton MD Diagnosis at Time of Discharge Diagnosis at Time of Discharge Clostridium Difficile Dysphagia, undetermined etiology Nausea/vomiting ESRD Procedures XRay, CTs & MRIs Chest x-ray on 05/06/2017: IMPRESSION: Previous inspiratory volume, mild stranding behind the left heart. This is considered more likely atelectasis than pneumonia by appearance. Dictated by: Trent Angela M.D. on 05/06/2017 at 12:52 CT of the abdomen and pelvis without contrast on 05/06/2017: IMPRESSION: Prominent distal rectal and anal wall thickening in keeping with proctitis. Please correlate clinically. Distal esophageal possible wall thickening although technically indeterminate it could be falsely accentuated due to decompressed state. If clinically necessary, further assessment with upper endoscopy or upper GI series can be performed. Incidental colonic diverticulosis. Normal appendix. Dictated by: Robbie Ayala M.D. on 05/07/2017 at 9:55 Other Diagnostics Barium swallow study on 05/09/2017: IMPRESSION: Severe esophageal dysmotility and delayed esophageal clearance. No definite stricture seen however limited examination due to decreased patient mobility and absence of air-contrast images. If there is persistent clinical concern, upper endoscopy could be performed as clinically warranted. Dictated by: Robbie Ayala M.D. on 05/08/2017 at 13:49 Brief History This is a 52-year-old male with past medical history significant for diabetes mellitus type II and currently uncontrolled, coronary artery disease, chronic elevation of troponins, ESRD on HD, chronic pain with intermittent opiate use, and peripheral vascular disease who presents today with nausea, vomiting, and diarrhea. The symptoms began 05/03/2017 after dialysis. He does have a sick contact, his sister, who has very similar symptoms. The diarrhea is liquid but he cannot describe the color due to his visual impairment. He also had sharp epigastric pain that is nonradiating with severity of 5/10 and described as constant. The pain is exacerbated by swallowing and hiccups and at times felt like a fullness in his throat. Patient states that nothing seems to relieve the pain. He did have similar symptoms approximately 1 year ago but does not recall how he treated this. Other associated symptoms: Night sweats, shortness of breath, itching of fistula. He denies any fevers, chills, chest pain cough, worsening lower extremity swelling. In the emergency department initial vitals were temperature 36.1 Celsius, pulse 93, respiratory rate 16, blood pressure 181/94, initial laboratory values WBC 19.6, hemoglobin 13.3, hematocrit 30.7, platelets 233. BUN 74, creatinine 11.55 , glucose 373, lactic acid 3.8, troponin 0.413. Chest x-ray showed likely atelectasis versus pneumonia. EKG showed normal sinus rhythm with rate of 90. Blood cultures are pending. In the emergency department patient received a 1 L bolus of normal saline, pantoprazole, lorazepam, and Humulin 10 units. Hospital Course This is a 52-year-old male with past medical history significant for coronary artery disease, ESRD on HD, peripheral vascular disease, chronic pain on opiates , diabetes mellitus type II who presents for nausea and vomiting with differential including gastroenteritis, gerd, diabetic gastroparesis. C diff positive, present on admission, ongoing: -Patient has active diarrhea. -Review of previous records shows no c diff infection. -Flagyl changed to Vanco PO and patient sent home with script Nausea, vomiting, present on admission, improving: -Patient has a history of nausea and prescribed metoclopramide from residency clinic on 12/11/2016. -Protonix continued. -Zofran for nausea. -Barium swallow showed severe esophageal dysmotility and delayed esophageal clearance. -GI to perform EGD today -Enema requested for flex sig but patient refused -stop Reglan due to ESRD; reglan not able to be dialyzed Systemic inflammatory response, present on admission, resolved. -Procalcitonin stable. -Will track infectious markers. -As patient condition is improved; stopped antibiotics, except vanco Diabetes mellitus type II, present on admission, stable -A1c 6.3. -Patient states he has not taken his diabetic medications in over a year. -Humalog medium dose correctional. Lactic acidosis with high anion gap, present on admission, resolved -.AG improved. -HD planned for 05/08. Chronically elevated troponins, present on admission, stable -Patient has chronically elevated troponins that are stable. Chronically elevated lipase, present on admission, resolving -On admit lipase 235. This has been chronically elevated in the past. Last lipase on 01/14/2017 was 190. -Lipase on discharge was in the 80's Hypertension, present on admission, ongoing: -Continue metoprolol. -Nephrology has stopped hydralazine; to continue after discharge since patient left AMA ESRD on HD present admission, ongoing: -Dr. Collins of nephrology is following patient. -Last Dialyzed 05/10/17 (day of discharge) Chronic normocytic anemia -On admits hemoglobin 13.3, hematocrit 30.7. This is stable and somewhat improved from previous Leukocytosis, present on admission, resolved -Possibly due to stress reaction vs. intra-abdominal infection. -WBC trending down. -Procalcitonin .stable. Dispo: Patient left AGAINST MEDICAL ADVICE. Currently the patient continues to have dysphagia with no explained etiology. Suspect the patient has gastroparesis due to his long history of uncontrolled diabetes mellitus just recently controlled. Patient did not wish to undergo enema or EGD today and after discussion accepted prescription for vancomycin by mouth to treat the C. difficile infection. Exam Vital Signs (Last) Date Time Temp Pulse Resp B/P Pulse Ox O2 Delivery O2 Flow Rate FiO2 05/10/17 16:10 36.6 84 18 145/90 100 Room Air Exam General: No acute distress, chronically ill appearing. Answering questions appropriately. Cardiovascular: Regular rate and rhythm 2/6 syst murmur Pulmonary: CTA bilaterally Abdomen: Bowel tones present. Soft, epigastric tenderness present without rebound or guarding, nondistended. No hepatosplenomegaly or masses appreciated. Extremities: No clubbing, cyanosis, edema, or lymphadenopathy appreciated. Fistula right: no erythema, discharge. Some excoriations at fistula site. Psychiatric: Normal mood and affect. Test 05/06/17 10:56 05/07/17 10:07 05/10/17 03:45 Hemoglobin A1c 6.3% (4.8-5.6) Magnesium Level 2.4mg/dL (1.6-2.6) Lactic Acid Level 0.7mmol/L (0.4-2.0) Iron Level 39ug/dL (35-150) Total Iron Binding Capacity 131ug/dL (250-450) Percent Iron Saturation 30%sat (15-50) Unsaturated Iron Binding 92.1ug/dL Ferritin 1452ng/mL (30-400) Troponin T 0.410ug/L (0.0-0.011) Procalcitonin 0.90ng/mL (0.00-0.08) White Blood Count 6.3th/mm3 (3.8-10.1) Red Blood Count 3.54mil/mm3 (4.40-5.80) Hemoglobin 11.2g/dL (13.8-17.2) Hematocrit 32.9% (41.0-50.0) Mean Corpuscular Volume 92.9fL (81-100) Mean Corpuscular Hemoglobin 31.6pg (27.0-35.0) Mean Corpuscular Hemoglobin Concent 34.0% (32.0-37.0) Red Cell Distribution Width 12.8% (12.3-15.4) Platelet Count 180bil/L (150-400) Neutrophils (%) (Auto) 60.2% (40-74) Lymphocytes (%) (Auto) 25.0% (14-46) Monocytes (%) (Auto) 8.8% (4-12) Eosinophils (%) (Auto) 5.8% (0-5) Basophils (%) (Auto) 0.2% (0-3) Sodium Level 137mEq/L (134-144) Potassium Level 4.3mEq/L (3.5-5.2) Chloride Level 95mEq/L (97-108) Carbon Dioxide Level 26mmol/L (18-29) Blood Urea Nitrogen 39mg/dL (6-24) Creatinine 8.06mg/dL (0.76-1.27) Estimat Glomerular Filtration Rate 8mL/min (>59) Glucose Level 91mg/dL (60-99) Calcium Level 8.5mg/dL (8.5-10.1) Total Bilirubin 0.3mg/dL (0.0-1.2) Aspartate Amino Transf (AST/SGOT) 15U/L (0-50) Alanine Aminotransferase (ALT/SGPT) 8U/L (0-44) Alkaline Phosphatase 54U/L (25-150) Total Protein 6.2g/dL (6.4-8.4) Albumin 3.3g/dL (3.4-5.0) Lipase 81U/L (13-60) Discharge Medications Discharge Medications Calcium Acetate (Calcium Acetate) 667 Mg Capsule 2,001 MG PO TIDWM (Reported) Hydralazine (Hydralazine) 50 Mg Tablet 50 MG PO TID (Reported) Metoprolol Tartrate (Metoprolol Tartrate) 25 Mg Tablet 25 MG PO BID (Reported) Pantoprazole DR (Pantoprazole DR) 40 Mg Tablet.dr 40 MG PO BID (Reported) Vancomycin (Vancomycin) 125 Mg Capsule 125 MG PO BID Prescribed by: AKHIL CHAMPION, DO As needed Ondansetron (Ondansetron) 8 Mg Tablet 8 MG PO q12 hours PRN PRN For Nausea ( Reported) oxyCODONE (oxyCODONE) 5 Mg Tablet 5 MG PO q8-10 hours PRN PRN For Pain (Reported ) Additional med instructions Vancomycin Followup Plan Discharge Diet: Diabetic, Renal Diet Discharge Activity: No restrictions Patient Instructions You are leaving against medical advice. We are sending you with vancomycin to take to treat your colon infection. You should also call gastro-enterology and follow-up for your difficulty swallowing. Follow-up Provider: [facility] Follow-up with PCP in: 1 week Provider: Jan Pena MD Follow-up in: 2 weeks Time spent greater than 35 minutes Attending Statement The patient was seen and examined together with Dr. Champion on 05/10/2017 and I agree with the history, exam and plan as outlined in the note above. copies to: Akhil Champion Michael R DO May 10, 2017 17:55 Rosendo Stapleton MD May 10, 2017 18:00
[2017-05-10] MEDS ORDERED: Vancomycin 125 mg Oral Capsule PO SCH (20:30)
== END 2017-05-10 17:20 | disposition left against medical advice (07) | DRG 371 ==
LOC: SED 10:33 → PCC 13:32
PROVIDERS: ADMIT Internal Medicine; ATTEND Neuromusculoskeletal Medicine & OMM
PROC: 5A1D60Z (ICD-10-PCS; principal; 2017-05-06)
PROC: 7W01X7Z Osteopathic Treatment of Cervical Region using Muscle Energy-Isometric Forces (ICD-10-PCS; 2017-05-07)
PROC: 7W01X7Z Osteopathic Treatment of Cervical Region using Muscle Energy-Isometric Forces (ICD-10-PCS; 2017-05-07)
PROC: 7W02X7Z Osteopathic Treatment of Thoracic Region using Muscle Energy-Isometric Forces (ICD-10-PCS; 2017-05-07)
PROC: 7W0 Osteopathic, Anatomical Regions, Treatment (ICD-10-PCS; 2017-05-07)
PROC: 7W0 Osteopathic, Anatomical Regions, Treatment (ICD-10-PCS; 2017-05-07)
PROC: 0KN Muscles, Release (ICD-10-PCS; 2017-05-07)
PROC: 0KN Muscles, Release (ICD-10-PCS; 2017-05-07)
PROC: 0SN Lower Joints, Release (ICD-10-PCS; 2017-05-07)
DX: A04.7 Enterocolitis due to Clostridium difficile (principal); N18.6 End stage renal disease; I13.11 Hypertensive heart and chronic kidney disease without heart failure, with stage 5 chronic kidney disease, or end stage renal disease; E87.4 Mixed disorder of acid-base balance; R65.10 Systemic inflammatory response syndrome (SIRS) of non-infectious origin without acute organ dysfunction; E11.43 Type 2 diabetes mellitus with diabetic autonomic (poly)neuropathy; K31.84 Gastroparesis; E11.319 Type 2 diabetes mellitus with unspecified diabetic retinopathy without macular edema; I73.9 Peripheral vascular disease, unspecified; G89.29 Other chronic pain; E11.65 Type 2 diabetes mellitus with hyperglycemia; I25.10 Atherosclerotic heart disease of native coronary artery without angina pectoris; E11.22 Type 2 diabetes mellitus with diabetic chronic kidney disease; Z99.2 Dependence on renal dialysis; Z79.4 Long term (current) use of insulin